=== PATIENT | male | born 1970 | race Caucasian/White ===

== ENCOUNTER 2016-06-18 10:46 | Outpatient (CLI) | payer MEDICAID | END 2016-06-18 10:47 | disposition home or self-care (01) | DX: M50.30 Other cervical disc degeneration, unspecified cervical region (principal); M51.34 Other intervertebral disc degeneration, thoracic region; M51.36 Other intervertebral disc degeneration, lumbar region ==

== ENCOUNTER 2016-06-18 13:03 | Outpatient (CLI) | payer MEDICAID | END 2016-06-18 13:04 | disposition home or self-care (01) | DX: I10 Essential (primary) hypertension (principal); E78.5 Hyperlipidemia, unspecified; Z72.51 High risk heterosexual behavior; M54.89 Other dorsalgia; M50.30 Other cervical disc degeneration, unspecified cervical region; M51.34 Other intervertebral disc degeneration, thoracic region; M51.36 Other intervertebral disc degeneration, lumbar region ==

== ENCOUNTER 2016-08-30 10:47 | Outpatient (CLI) | payer MEDICAID | END 2016-08-30 10:48 | disposition home or self-care (01) | DX: M48.56XA Collapsed vertebra, not elsewhere classified, lumbar region, initial encounter for fracture (principal); M51.36 Other intervertebral disc degeneration, lumbar region; M51.46 Schmorl's nodes, lumbar region; M47.816 Spondylosis without myelopathy or radiculopathy, lumbar region ==

== ENCOUNTER 2016-12-31 08:00 | Outpatient (CLI) | payer MEDICAID | END 2016-12-31 08:01 | disposition home or self-care (01) | LOC: LAB.F 08:00 | PROVIDERS: ATTEND Nurse Practitioner Family | DX: R19.7 Diarrhea, unspecified (principal) | CPT/HCPCS: 82270; 87045; 87046; 87177; 87209; 87493 ==

== ENCOUNTER 2017-01-22 15:54 | Inpatient (IN) | payer MEDICAID ==
[2017-01-22] MEDS ORDERED: NYSTATIN 500000 UNITS/5 ML UDC PO STA (16:51)
[2017-01-22] MEDS ORDERED: diazePAM 5 MG TABLET PO STA (16:53)
--- NOTE | 2017-01-22 16:54 | ED Physician Documentation ---
History of Present Illness - Stated complaint Stated Complaint: DRY MOUTH/CONFUSION - Chief complaint Chief Complaint: General - History obtained from History obtained from: Patient - History of Present Illness Timing: Other (He was started on Seroquel and BuSpar a couple of months ago but he had severe side effects, specifically dry mouth and peripheral muscle aches, despite stopping these medications and not having them in the last few days continues to have severe dry mouth and is drinking a lot of water and feels miserable.) Review of Systems Ten Systems: 10 systems reviewed and negative Constitutional: denies: Fever, Chills Ears: denies: Loss of hearing, Ear pain Nose: denies: Rhinorrhea / runny nose, Congestion PD PAST MEDICAL HISTORY - Allergies Allergies/Adverse Reactions: Allergies Allergy/AdvReac Type Severity Reaction Status Date / Time No Known Drug Allergies Allergy Verified 01/22/17 16:03 PD ED PE NORMAL - Vitals Vital signs reviewed: Yes - General General: Alert and oriented X 3, No acute distress, Other (ill appearing) - HEENT HEENT: PERRL, EOMI, Other (Very dry mucous membranes with mild oral thrush) - Neck Neck: Supple, no meningeal sign, No bony TTP - Cardiac Cardiac: RRR (Mild tachycardia without murmur) - Respiratory Respiratory: No respiratory distress, Clear bilaterally - Abdomen Abdomen: Non tender - Derm Derm: No rash - Neuro Neuro: Alert and oriented X 3, Normal speech - Psych Psych: Normal mood, Normal affect Results - Vitals Vitals: Vital Signs - 24 hr 01/22/17 15:59 Temperature 35.9 C L Heart Rate 111 H Respiratory 20 Rate Blood Pressure 138/98 H O2 Saturation 97 Oxygen O2 Source Room air - Labs Labs: Laboratory Tests 01/22/17 01/22/17 01/22/17 17:20 17:40 17:40 WBC 15.1 H RBC 5.51 Hgb 16.8 Hct 58.7 H MCV 106.6 H MCH 30.5 MCHC 28.6 L RDW 13.7 Plt Count 387 MPV 9.8 Neut # 12.8 H Lymph # 0.9 L Edwards # 1.4 H Eos # 0.0 Baso # 0.1 Absolute Nucleated RBC 0.00 Nucleated RBCs 0.0 VBG pH VBG pCO2 VBG pO2 VBG HCO3 VBG Total CO2 VBG O2 Saturation VBG Base Excess Sodium 116 L* Potassium 6.5 H* Chloride 73 L* Carbon Dioxide 11 L* Anion Gap 32.0 H BUN 44 H Creatinine 2.3 H Estimated GFR (MDRD) 31 L Glucose Calcium 9.2 Magnesium 3.4 H Total Bilirubin 2.1 H AST 15 ALT 22 Alkaline Phosphatase 195 H Total Protein 8.8 H Albumin 5.2 Globulin 3.6 Albumin/Globulin Ratio 1.4 Lipase 133 H Urine Color YELLOW Urine Clarity CLEAR Urine pH 5.5 Ur Specific [place] <=1.005 Urine Protein NEGATIVE Urine Glucose (UA) >=1000 H Urine Ketones 15 H Urine Occult Blood TRACE-LYSE Urine Nitrite NEGATIVE Urine Bilirubin NEGATIVE Urine Urobilinogen 0.2 (NORMAL) Ur Leukocyte Esterase NEGATIVE Ur Microscopic Review NOT INDICATED Urine Culture Comments NOT INDICATED Ethyl Alcohol < 5.0 01/22/17 18:36 WBC RBC Hgb Hct MCV MCH MCHC RDW Plt Count MPV Neut # Lymph # Edwards # Eos # Baso # Absolute Nucleated RBC Nucleated RBCs VBG pH 7.170 L VBG pCO2 31.1 L VBG pO2 74.8 H VBG HCO3 11.1 L VBG Total CO2 12.0 L VBG O2 Saturation 92.6 H VBG Base Excess -16.0 L Sodium Potassium Chloride Carbon Dioxide Anion Gap BUN Creatinine Estimated GFR (MDRD) Glucose Calcium Magnesium Total Bilirubin AST ALT Alkaline Phosphatase Total Protein Albumin Globulin Albumin/Globulin Ratio Lipase Urine Color Urine Clarity Urine pH Ur Specific [place] Urine Protein Urine Glucose (UA) Urine Ketones Urine Occult Blood Urine Nitrite Urine Bilirubin Urine Urobilinogen Ur Leukocyte Esterase Ur Microscopic Review Urine Culture Comments Ethyl Alcohol Procedures - General procedure General procedure: He was difficult for IV access and I personally placed a 20-gauge long IV in the left deep brachial vein using real-time ultrasound guidance. - Central Line Central Line Preparation: Consent Obtained, Ultrasound used, Sterile prep and drape Central line location: Right IJ Central line type: Single lumen Central line aftercare: Chlorhexidine disc placed, No complications, Other (the peripheral IV I had placed came out) PD MEDICAL DECISION MAKING - ED course ED course: 46-year-old gentleman presents by private vehicle complaining of dry mouth after some new psychiatric medications which he is already stopped. He was found to be a new onset diabetic ketoacidosis and IV fluids and insulin were started. Call to the hospitalist for admission at 6:20 PM, she deferred to the night hospitalist who I spoke with at shift change, Dr. Bryce Dailey. - Critical Care Time(min): 45 Time Includes: Direct patient care, Review records, Reassess patient, Document care, Coordinate care, Medical consult, Family consult for tx dec Procedures included in critical care time: Peripheral IV Departure - Departure Disposition: 66 [facility] DC/Xfer Clinical Impression: Renal failure, Hyperkalemia, Oral thrush Diabetic ketoacidosis Qualifiers: Diabetes mellitus type: other specified (including RADHA) Diabetes mellitus complication detail: without coma Qualified Code(s): E13.10 - Other specified diabetes mellitus with ketoacidosis without coma Condition: Critical Discharge Date/Time: 01/22/17 20:26
[2017-01-22] MEDS ORDERED: diazePAM 5 MG TABLET PO ONE (17:17)
[2017-01-22] MEDS ORDERED: NYSTATIN 500000 UNITS/5 ML UDC PO ONE (17:17)
[2017-01-22 17:37] LABS: BILIRUBIN,URINE NEGATIVE (NEGATIVE); PH,URINE 5.5 PH (5.0-7.5)
[2017-01-22 17:38] LABS: UA CHARGE (STRIP ONLY) YES; UR CULTURE IF IND NOT INDICATED
[2017-01-22 17:54] LABS: BASOPHILS # (AUTO) 0.1 10^3/uL (0.0-0.1); BASOPHILS % (AUTO) 0.5 %; EOSINOPHILS % (AUTO) 0.1 %; HCT - HEMATOCRIT 58.7 % (42.0-52.0); HGB - HEMOGLOBIN 16.8 g/dL (14.0-18.0); LYMPHOCYTES # (AUTO) 0.9 10^3/uL (1.5-3.5); LYMPHOCYTES % (AUTO) 5.6 %; MEAN CORPUSCULAR HEMOGLOBIN 30.5 pg (27.0-31.0); MEAN CORPUSCULAR HGB CONC 28.6 g/dL (32.0-36.0); MEAN CORPUSCULAR VOLUME 106.6 fL (80.0-94.0); MEAN PLATELET VOLUME 9.8 fL (7.4-11.4); MONOCYTES # (AUTO) 1.4 10^3/uL (0.0-1.0); MONOCYTES % (AUTO) 9.2 %; NEUTROPHILS # (AUTO) 12.8 10^3/uL (1.5-6.6); NEUTROPHILS % (AUTO) 84.6 %; RED BLOOD COUNT 5.51 10^6/uL (4.70-6.10); RED CELL DISTRIBUTION WIDTH 13.7 % (12.0-15.0); UNCORRECTED WHITE BLOOD COUNT 15.1 x10^3/uL; WHITE BLOOD COUNT 15.1 x10^3/uL (4.8-10.8)
[2017-01-22 18:17] LABS: ALBUMIN/GLOBULIN RATIO 1.4 (1.0-2.2); BILIRUBIN,TOTAL 2.1 mg/dL (0.2-1.0); BUN - BLOOD UREA NITROGEN 44 mg/dL (6-20); CALCIUM 9.2 mg/dL (8.5-10.3); CARBON DIOXIDE - CO2 11 mmol/L (21-32); CHLORIDE 73 mmol/L (101-111); CREATININE 2.3 mg/dL (0.6-1.2); GFR - MDRD 31 (>89); LIPASE 133 U/L (22-51); MAGNESIUM 3.4 mg/dL (1.7-2.8); POTASSIUM 6.5 mmol/L (3.5-5.0); SODIUM 116 mmol/L (135-145); TOTAL PROTEIN 8.8 g/dL (6.7-8.2)
[2017-01-22] MEDS ORDERED: SODIUM CHLORIDE 0.9% 1,000 ML IV ONE (18:17)
[2017-01-22] MEDS ORDERED: INSULIN REGULAR HUMAN 100 UNIT in SODIUM CHLORIDE 0.9% 100ML 99 ML IV STA (18:17)
[2017-01-22] MEDS ORDERED: SODIUM CHLORIDE FLUSH 0.9% 10 ML SYRINGE IVP ONE (18:29)
[2017-01-22] MEDS: SODIUM CHLORIDE 0.9% 1,000 ML IV ONE ×2 (18:40→19:56)
[2017-01-22 18:46] LABS: VBG PH 7.17 (7.31-7.41)
[2017-01-22 18:47] LABS: VBG OXYGEN SATURATION 92.6 % (60-80)
[2017-01-22] MEDS ORDERED: HYDROcod/ACETAM 5/325 MG TABLET PO PRN (18:50)
[2017-01-22] MEDS ORDERED: HYDROcod/ACETAM 10 MG/325 MG TABLET PO PRN (18:50)
[2017-01-22] MEDS ORDERED: ONDANSETRON 4 MG/2 ML VIAL IVP PRN (18:50)
[2017-01-22] MEDS ORDERED: INSULIN REGULAR HUMAN 100 UNIT/1 ML 10 ML MDV ONE (19:41)
--- NOTE | 2017-01-22 20:20 | XRAY Preliminary Report ---
Exam: XR Chest for Line Placement IMPRESSION: Right IJ line to the cavoatrial junction, otherwise unremarkable single view chest. [facility] SITE ID: [id number]
--- NOTE | 2017-01-22 20:22 | XRAY Report ---
EXAM: CHEST RADIOGRAPHY EXAM DATE: 01/22/2017 07:53 PM. CLINICAL HISTORY: Post line placement. COMPARISON: None. TECHNIQUE: 1 view. FINDINGS: Lungs/Pleura: No focal opacities evident. No pleural effusion. No pneumothorax. Mediastinum: Within exam limitations, cardiomediastinal contour is normal. Other: Right IJ line to the cavoatrial junction. IMPRESSION: Right IJ line to the cavoatrial junction, otherwise unremarkable single view chest. [facility] Referring Provider Line: [phone] SITE ID: [id number]
[2017-01-22] MEDS ORDERED: SODIUM CHLORIDE 0.9% 100ML 100 ML IV ONE (20:46)
[2017-01-22] MEDS: SODIUM CHLORIDE 0.9% 1,000 ML IV SCH (20:55)
[2017-01-22] MEDS ORDERED: INSULIN REGULAR HUMAN 100 UNIT in SODIUM CHLORIDE 0.9% 100ML 99 ML IV SCH (21:00)
[2017-01-22 22:16] LABS: HEMOGLOBIN A1C 2.38 g/dL
[2017-01-22 22:30] LABS: MAGNESIUM 3.2 mg/dL (1.7-2.8)
[2017-01-22 23:01] LABS: ABG ANALYSIS TIME 2225; ABG HCO3 15.3 mmol/L (22.0-26.0); ABG PCO2 32 mmHg (34-45); ABG PO2 78 mmHg (80-100); ABG TCO2 16.3 MMOL/L (21.0-29.0)
[2017-01-22 23:02] LABS: ABG BASE EXCESS -9.7 mmol/L (-2.0-3.0); ABG OXYGEN SATURATION 94 % (94-98); ABG ROOM AIR YES; ABG SITE OF DRAW RIGHT RADIAL; ALLEN TEST POSITIVE
[2017-01-22] MEDS: SODIUM CHLORIDE FLUSH 0.9% 10 ML SYRINGE IVP PRN (23:19)
[2017-01-22] MEDS: PANTOPRAZOLE 40 MG VIAL IVP SCH (23:20)
[2017-01-22] MEDS: SODIUM CHLORIDE FLUSH 0.9% 10 ML SYRINGE IVP SCH (23:20)
[2017-01-23 01:06] LABS: BUN - BLOOD UREA NITROGEN 39 mg/dL (6-20); CARBON DIOXIDE - CO2 19 mmol/L (21-32); CHLORIDE 96 mmol/L (101-111); CREATININE 1.9 mg/dL (0.6-1.2); GFR - MDRD 38 (>89); MAGNESIUM 3.4 mg/dL (1.7-2.8); POTASSIUM 4.1 mmol/L (3.5-5.0); SODIUM 134 mmol/L (135-145)
[2017-01-23 01:07] LABS: GLUCOSE 835 mg/dL (70-100)
[2017-01-23] MEDS: SODIUM CHLORIDE 0.9% 1,000 ML IV SCH ×5 (01:59→16:32)
[2017-01-23 03:39] LABS: GLUCOSE 565 mg/dL (70-100)
--- NOTE | 2017-01-23 03:52 | HISTORY & PHYSICAL EXAMINATION ---
DATE OF ADMISSION: 01/22/2017 PRIMARY CARE PHYSICIAN: JLUIS Cobrett. CHIEF COMPLAINT: Confusion. IDENTIFYING INFORMATION: The patient is a very poor historian to the point where he cannot even say w here he was born exactly and when asked again, said somewhere in [place]. Most of the information is obtained in the hand-off from the emergency department physician, as well as personal review of [facility] records summarized below and his data collected during this visit. HISTORY OF PRESENT ILLNESS: The patient, a couple of months ago, because of psychiatric problems, was started on Seroquel and BuSpar, but due to side effects including dry mouth and muscle aches, the me dications were stopped, but he has continued to have dry mouth, drinking a lot of water. The patient appears to just be concerned about these issues. He says he never had this before. REVIEW OF SYSTEMS: He has not had any fever or chills. No sore throat. He just has a very dry mouth. He denies abdominal pain. He says he is peeing a lot, as well as drinking a lot of walker. The patien t's rest of the complete review of systems is negative as queried. PAST MEDICAL HISTORY: Is not forthcoming given the poor historian. ALLERGIES: NONE KNOWN. MEDICATIONS: According to him, he has no medications he takes on a chronic basis, only medicines note d above previously. FAMILY HISTORY: Negative for diabetes. Positive for heart disease. He does not know about cancer. PERSONAL AND SOCIAL HISTORY: He says he does not smoke, drink, except occasionally. Never smoked jase y. He says that he has not used any drugs or alcohol. PHYSICAL EXAMINATION VITAL SIGNS: Temperature 35.9, pulse 111, respirations 20, blood pressure 138/98, O2 saturation on ro om air is 97%. EYES: EOM within normal limits. PERRL. Nonicteric. ENT: Mouth and throat, very dry mucous membranes. Otherwise, no pathology. Specifically no exudate, t ongue coating. NECK: No lymphadenopathy. Supple. No thyromegaly. CHEST WALL: Nontender. Symmetric. LUNGS: Clear, good air movement. No increased work of breathing. HEART: Sinus tachycardia. No murmur, rubs, clicks heard. ABDOMEN: Thick abdominal wall, soft, nontender, normal bowel sounds. No hepatosplenomegaly. RECTAL/GENITAL: Exam is not done. EXTREMITIES: Without edema. He has palpable pulses posterior tibial bilaterally. SKIN: No suspicious lesions, dermatitis. NEUROLOGIC: Cognitive is impaired as noted above. Cranial nerves intact. Motor intact. Gait was not t ested. LABORATORY DATA: White count 15,000 with 16 and 58 hemoglobin and hematocrit. The patient's platelet count is 387. Sodium 116, potassium 6.5, chloride 73, carbon dioxide 11, CO2 44, BUN 2.3, glucose is over 1000. The patient's bilirubin is high at 2.1. Normal liver enzymes. Alkaline phosphatase elevate d at 195, albumin is 5.2. Urine shows greater than 1000 glucose, ketones 15. No white cells, red cell s. Alcohol is less than 5.0. The patient's chest x-ray is negative. SUMMARY: The patient has been sick for some number of days with muscle aches, polydipsia and polyuria , diagnosed with DKA. About previous history, the patient is a very poor historian. The history is th erefore limited in depth and breadth. IMPRESSION 1. Diabetic ketoacidosis. 2. New onset diabetes. 3. Hyponatremia. 4. Pseudohyperkalemia. DISCUSSION/DECISION MAKING: The patient with his DKA needs close monitoring in ICU. Will need infusio ns of high volume saline, as well as insulin drip. The new diabetes will need to have, after he is ou t of DKA, diabetic instruction. The hyponatremia will be improved with the saline infusion, as he is felt to be hypokalemic. The patient's potassium will be monitored. May actually need potassium replac ement given his extremely high glucose. HOSPITAL ISSUES 1. CODE STATUS: FULL CODE. 2. DVT prophylaxis: Lovenox subcutaneous. 3. Diet: Will be n.p.o. presently. 4. Activity: Bed rest initially. 5. Tube and lines: Will be peripheral IV presently. May need a central line, may need a Crow. 6. Hospital status: To be inpatient given the severity of illness. The severity of illness requires a t least 2 nights of inpatient therapy and potentially additional diagnostics and therapeutics to asce rtain improvement for safe discharge. 7. Estimated length of stay: 3 nights. 8. Expected disposition: For him to be discharged to home. TIME SPENT IN CRITICAL CARE: 60 minutes. The patient required multiple reexaminations, consultations for this life-threatening DKA. JOB #: [id number] EXT JOB #:[id number]
[2017-01-23 04:48] LABS: BASOPHILS # (AUTO) 0.1 10^3/uL (0.0-0.1); BASOPHILS % (AUTO) 0.5 %; HCT - HEMATOCRIT 46.5 % (42.0-52.0); HGB - HEMOGLOBIN 16.2 g/dL (14.0-18.0); LYMPHOCYTES # (AUTO) 2.4 10^3/uL (1.5-3.5); LYMPHOCYTES % (AUTO) 14.1 %; MEAN CORPUSCULAR HEMOGLOBIN 30.9 pg (27.0-31.0); MEAN CORPUSCULAR HGB CONC 34.8 g/dL (32.0-36.0); MEAN CORPUSCULAR VOLUME 88.7 fL (80.0-94.0); MEAN PLATELET VOLUME 8.8 fL (7.4-11.4); MONOCYTES # (AUTO) 1.3 10^3/uL (0.0-1.0); MONOCYTES % (AUTO) 7.7 %; NEUTROPHILS # (AUTO) 13.4 10^3/uL (1.5-6.6); NEUTROPHILS % (AUTO) 77.7 %; RED BLOOD COUNT 5.24 10^6/uL (4.70-6.10); RED CELL DISTRIBUTION WIDTH 12.7 % (12.0-15.0); UNCORRECTED WHITE BLOOD COUNT 17.2 x10^3/uL; WHITE BLOOD COUNT 17.2 x10^3/uL (4.8-10.8)
[2017-01-23 04:51] LABS: GLUCOSE 500 mg/dL (70-100)
[2017-01-23 05:11] LABS: ABG BASE EXCESS 0.3 mmol/L (-2.0-3.0); ABG HCO3 23.7 mmol/L (22.0-26.0); ABG OXYGEN SATURATION 96 % (94-98); ABG PCO2 35 mmHg (34-45); ABG PH 7.45 (7.35-7.45); ABG PO2 79 mmHg (80-100); ABG TCO2 24.8 MMOL/L (21.0-29.0); ALLEN TEST POSITIVE
[2017-01-23 05:12] LABS: ABG ROOM AIR YES; ABG SITE OF DRAW LEFT RADIAL
[2017-01-23 05:21] LABS: POTASSIUM 3.9 mmol/L (3.5-5.0)
[2017-01-23 05:22] LABS: CALCIUM 9.1 mg/dL (8.5-10.3); CREATININE 1.5 mg/dL (0.6-1.2); MAGNESIUM 3.2 mg/dL (1.7-2.8); PHOSPHORUS 2.4 mg/dL (2.5-4.6)
[2017-01-23 05:23] LABS: BILIRUBIN,TOTAL 1.3 mg/dL (0.2-1.0)
[2017-01-23 05:24] LABS: ALBUMIN/GLOBULIN RATIO 1.7 (1.0-2.2); TOTAL PROTEIN 7.6 g/dL (6.7-8.2)
[2017-01-23 05:39] LABS: GLUCOSE 484 mg/dL (70-100)
[2017-01-23 05:51] LABS: GLUCOSE 1172 mg/dL (70-100)
[2017-01-23] MEDS: NEUTRA-PHOS 250 MG TABLET PO SCH ×2 (05:55→08:11)
[2017-01-23] MEDS ORDERED: HALOPERIDOL 5 MG/ML VIAL IM SCH (06:34)
[2017-01-23] MEDS: SODIUM CHLORIDE FLUSH 0.9% 10 ML SYRINGE IVP SCH ×3 (06:39→20:55)
[2017-01-23] MEDS: PANTOPRAZOLE 40 MG VIAL IVP SCH (06:46)
[2017-01-23] MEDS: SODIUM CHLORIDE FLUSH 0.9% 10 ML SYRINGE IVP PRN ×2 (06:46→20:55)
[2017-01-23 07:30] LABS: GLUCOSE 398 mg/dL (70-100)
[2017-01-23] MEDS ORDERED: INSULIN REGULAR HUMAN 100 UNIT/1 ML 10 ML MDV ONE (09:21)
[2017-01-23] MEDS ORDERED: INSULIN REGULAR HUMAN 100 UNIT in SODIUM CHLORIDE 0.9% 100ML 99 ML IV SCH (09:30)
[2017-01-23] MEDS: NICOTINE 21 MG PATCH TOP SCH (10:04)
[2017-01-23] MEDS: ENOXAPARIN 40 MG/0.4 ML SYRINGE SUBQ SCH (10:16)
[2017-01-23] MEDS ORDERED: DEXTROSE 5%-0.9% NACL 1,000 ML IV ONE (15:44)
[2017-01-23 16:04] LABS: CALCIUM 7.5 mg/dL (8.5-10.3)
[2017-01-23 17:18] LABS: PHOSPHORUS 2.8 mg/dL (2.5-4.6)
[2017-01-23] MEDS: metFORMIN 500 MG TABLET PO SCH (17:24)
[2017-01-23] MEDS: INSULIN ASPART 300 UNIT/3 ML PEN SUBQ SCH ×2 (17:25→21:33)
[2017-01-23 17:54] LABS: CALCIUM, IONIZED 0.97 mmol/L (1.15-1.33); VBG PH 7.346 (7.31-7.41)
[2017-01-23] MEDS ORDERED: POTASSIUM CHLORIDE 20 MEQ TABLET PO SCH (18:00)
[2017-01-23] MEDS: NYSTATIN 500000 UNITS/5 ML UDC PO SCH ×2 (18:04→20:54)
--- NOTE | 2017-01-23 18:08 | PROVIDER PROGRESS NOTE ---
Hospitalist Cross-cover Note - Cross-Cover Note Cross-Cover Note: Pt more alert and mother, sister and nephew all gave more info today: Pt moved from [place] to [place] in Apr 2016. Pt used to drink alcohol heavily, but not for past 2 years. Mother was taking Pt to Medical Clinic and Psych and Telepsych appts. Last blood tests were 6 mos ago and "glucose was normal". About 2-5 mos ago, Pt began to have increased thirst, polyuria and fatigue. A few days ago, mouth so dry that Pt stopped his psych meds thinking they caused dry mouth. Pt was seen in his Medical Clinic yesterday and his established ANIMAL SHELTER CLERK advised mother bring Pt to our ED, "because he looked so bad'. Exam is consistent with thrush. Will start Nystatin swish and swallow and Clotrimazole lozenges.
[2017-01-23] MEDS: CLOTRIMAZOLE 10 MG LOZENGE MM SCH ×2 (18:33→21:33)
[2017-01-23] MEDS ORDERED: CALCIUM GLUCONATE 2,000 MG in SODIUM CHLORIDE 0.9% 100ML 100 ML IV ONE (19:00)
[2017-01-23] MEDS: POTASSIUM CHLOR 10 MEQ/100 ML 100 ML IV SCH ×4 (19:07→19:15)
[2017-01-23] MEDS: busPIRone 5 MG TABLET PO SCH (20:54)
[2017-01-23] MEDS: QUEtiapine 25 MG TABLET PO SCH (20:54)
[2017-01-23 21:05] LABS: CALCIUM, IONIZED 1.11 mmol/L (1.15-1.33); VBG PH 7.372 (7.31-7.41)
[2017-01-23 21:16] LABS: ALBUMIN/GLOBULIN RATIO 1.3 (1.0-2.2); BILIRUBIN,TOTAL 1.1 mg/dL (0.2-1.0); POTASSIUM 4.5 mmol/L (3.5-5.0); TOTAL PROTEIN 5.6 g/dL (6.7-8.2)
[2017-01-23] MEDS ORDERED: INSULIN ASPART 100 UNIT/1 ML 10 ML MDV SUBQ STA (21:21)
[2017-01-23] MEDS ORDERED: INSULIN ASPART 100 UNIT/1 ML 10 ML MDV SUBQ SCH (21:51)
[2017-01-23] MEDS ORDERED: INSULIN ASPART 300 UNIT/3 ML PEN SUBQ SCH (23:45)
[2017-01-24 05:04] LABS: BASOPHILS # (AUTO) 0.1 10^3/uL (0.0-0.1); BASOPHILS % (AUTO) 0.8 %; EOSINOPHILS # (AUTO) 0.1 10^3/uL (0.0-0.7); EOSINOPHILS % (AUTO) 0.6 %; HCT - HEMATOCRIT 40.1 % (42.0-52.0); HGB - HEMOGLOBIN 13.7 g/dL (14.0-18.0); LYMPHOCYTES # (AUTO) 4.4 10^3/uL (1.5-3.5); LYMPHOCYTES % (AUTO) 34.9 %; MEAN CORPUSCULAR HEMOGLOBIN 30.8 pg (27.0-31.0); MEAN CORPUSCULAR VOLUME 90.4 fL (80.0-94.0); MEAN PLATELET VOLUME 8.5 fL (7.4-11.4); MONOCYTES % (AUTO) 7.9 %; NEUTROPHILS % (AUTO) 55.8 %; RED BLOOD COUNT 4.43 10^6/uL (4.70-6.10); RED CELL DISTRIBUTION WIDTH 12.5 % (12.0-15.0); UNCORRECTED WHITE BLOOD COUNT 12.5 x10^3/uL; WHITE BLOOD COUNT 12.5 x10^3/uL (4.8-10.8)
[2017-01-24 05:17] LABS: ALBUMIN/GLOBULIN RATIO 1.4 (1.0-2.2); BILIRUBIN,TOTAL 1.3 mg/dL (0.2-1.0); BUN - BLOOD UREA NITROGEN 22 mg/dL (6-20); CALCIUM 8.4 mg/dL (8.5-10.3); CARBON DIOXIDE - CO2 25 mmol/L (21-32); CHLORIDE 106 mmol/L (101-111); CREATININE 1.1 mg/dL (0.6-1.2); GFR - MDRD 71 (>89); GLUCOSE 282 mg/dL (70-100); MAGNESIUM 2.3 mg/dL (1.7-2.8); POTASSIUM 3.8 mmol/L (3.5-5.0); SODIUM 141 mmol/L (135-145); TOTAL PROTEIN 5.9 g/dL (6.7-8.2)
[2017-01-24] MEDS: CLOTRIMAZOLE 10 MG LOZENGE MM SCH ×5 (06:28→21:12)
[2017-01-24] MEDS: SODIUM CHLORIDE FLUSH 0.9% 10 ML SYRINGE IVP SCH ×3 (06:28→21:05)
[2017-01-24] MEDS: PANTOPRAZOLE 40 MG VIAL IVP SCH ×2 (06:28→21:05)
[2017-01-24] MEDS: INSULIN ASPART 300 UNIT/3 ML PEN SUBQ SCH ×4 (08:12→21:03)
[2017-01-24] MEDS: busPIRone 5 MG TABLET PO SCH ×2 (09:24→21:04)
[2017-01-24] MEDS: ENOXAPARIN 40 MG/0.4 ML SYRINGE SUBQ SCH (09:26)
[2017-01-24] MEDS: metFORMIN 500 MG TABLET PO SCH ×2 (09:26→16:39)
[2017-01-24] MEDS: NYSTATIN 500000 UNITS/5 ML UDC PO SCH ×4 (09:27→21:05)
[2017-01-24] MEDS: NICOTINE 21 MG PATCH TOP SCH (09:27)
[2017-01-24] MEDS: CALCIUM CARBONATE CHEW 500 MG TABLET PO SCH ×2 (15:19→21:04)
[2017-01-24] MEDS ORDERED: CALCIUM CARBONATE CHEW 500 MG TABLET ONE (15:22)
--- NOTE | 2017-01-24 16:41 | PROVIDER PROGRESS NOTE ---
Assessment/Plan - Problem List (1) Diabetic ketoacidosis Qualifiers: Diabetes mellitus type: other specified (including RADHA) Diabetes mellitus complication detail: without coma Qualified Code(s): E13.10 - Other specified diabetes mellitus with ketoacidosis without coma Assessment/Plan: Ketones now neg Glu are running 300-400's Will advance diet Will add Lantus 10U qpm to cover am high sugars Continue metformin 500 mg bid Pt needs DM education (2) Oral thrush Assessment/Plan: Continue Nystatin and Clotrimazole (3) Abdominal pain Qualifiers: Abdominal location: epigastric Qualified Code(s): R10.13 - Epigastric pain Assessment/Plan: Pt may have esophageal Candidiasis as well as thrush Continue Nystatin, Clotrimazole, add TUMS and/or Mylanta Follow H/H and heme test stool - Current Meds Current Meds: Current Medications Generic Name Dose Route Start Last Admin Trade Name Freq PRN Reason Stop Dose Admin Acetaminophen/Hydrocodone Bitart 1 tab 01/22/17 18:50 01/23/17 19:43 [place] 5/325 PO 1 tab Q4HR PRN Administration Pain 5 to 7 Buspirone HCl 5 mg 01/23/17 21:00 01/24/17 09:24 Buspar PO 5 mg BID TRACI Administration Calcium Carbonate/Glycine 500 mg 01/24/17 16:00 01/24/17 15:19 Tums PO 500 mg BID TRACI Administration Clotrimazole 10 mg 01/23/17 18:00 01/24/17 15:24 MM 10 mg 5XD TRACI Administration Enoxaparin Sodium 40 mg 01/23/17 09:00 01/24/17 09:26 Lovenox SUBQ 40 mg DAILY TRACI Administration Insulin Aspart 3 - 11 unit 01/24/17 08:00 01/24/17 11:50 Novolog SUBQ 11 unit 0800,1200,1700,2100 TRACI Administration Protocol Metformin HCl 500 mg 01/23/17 17:00 01/24/17 09:26 Glucophage PO 500 mg BIDWM TRACI Administration Nicotine 1 patch 01/23/17 10:00 01/24/17 09:27 Nicoderm TOP 1 patch DAILY TRACI Administration Nystatin 5 ml 01/23/17 18:00 01/24/17 13:52 Mycostatin PO 5 ml QID TRACI Administration Ondansetron HCl 4 mg 01/22/17 18:50 01/24/17 12:31 Zofran Inj IVP 4 mg Q4HR PRN Administration Nausea / Vomiting Pantoprazole Sodium 40 mg 01/22/17 19:00 01/24/17 06:28 Protonix IVP 40 mg QDAC TRACI Administration Quetiapine Fumarate 25 mg 01/23/17 21:00 01/23/17 20:54 Seroquel PO 25 mg QPM TRACI Administration Sodium Chloride 10 ml 01/22/17 18:50 01/23/17 20:55 Normal Saline Flush 0.9% IVP 10 ml PRN PRN Administration NEEDED PER PROVIDER ORDERS Sodium Chloride 10 ml 01/22/17 22:00 01/24/17 12:31 Normal Saline Flush 0.9% IVP 10 ml Q8HR TRACI Administration - Lab Result Fish Bone Diagrams: 01/24/17 04:50 01/24/17 04:50 - Additional Planning My Orders: My Active Orders 01/23/17 15:42 Activity Orders [RC] QSHIFT 01/23/17 15:49 Initiate Hypoglycemia Protocol [RC] .protocol 01/23/17 17:00 metFORMIN [Glucophage] 500 mg PO BIDWM 01/23/17 18:00 Clotrimazole Row[place] 10 mg MM 5XD Nystatin [Mycostatin] 5 ml PO QID 01/23/17 21:00 QUEtiapine [SEROquel] 25 mg PO QPM busPIRone [Buspar] 5 mg PO BID 01/23/17 Dinner Carb-controlled Diet [DIET] 01/24/17 16:00 Calcium Carbonate [Tums] 500 mg PO BID 01/24/17 21:00 Insulin Glargine [Lantus Solostar] 10 unit SUBQ QPM Subjective - Subjective Patient Reports: Heartburn, Other (More alert) Nursing Reports: Other (Heartburn when swallowed first solid food today) Objective Vital Signs: Vital Signs - 24 hr 01/23/17 01/23/17 01/23/17 17:11 18:00 19:00 Temperature 36.6 C Heart Rate [ Brachial] Heart Rate [ 92 94 93 Monitoring electrodes] Respiratory 54 H 22 24 Rate Blood Pressure 138/78 H 133/80 H 150/79 H [Left Brachial artery] Blood Pressure [Right Brachial artery] O2 Saturation 97 95 96 01/23/17 01/23/17 01/23/17 20:00 21:12 22:05 Temperature 37.3 C Heart Rate [ Brachial] Heart Rate [ 94 95 97 Monitoring electrodes] Respiratory 17 22 22 Rate Blood Pressure 135/85 H 150/87 H 126/73 [Left Brachial artery] Blood Pressure [Right Brachial artery] O2 Saturation 94 96 96 01/23/17 01/24/17 01/24/17 23:02 00:00 01:00 Temperature 36.6 C Heart Rate [ Brachial] Heart Rate [ 103 H 104 H 103 H Monitoring electrodes] Respiratory 21 21 22 Rate Blood Pressure 123/75 110/75 126/74 [Left Brachial artery] Blood Pressure [Right Brachial artery] O2 Saturation 95 95 96 01/24/17 01/24/17 01/24/17 02:00 03:00 04:00 Temperature 37.1 C Heart Rate [ Brachial] Heart Rate [ 104 H 102 H 97 Monitoring electrodes] Respiratory 18 22 20 Rate Blood Pressure 127/79 114/80 131/70 H [Left Brachial artery] Blood Pressure [Right Brachial artery] O2 Saturation 97 97 97 01/24/17 01/24/17 01/24/17 05:00 06:00 07:00 Temperature Heart Rate [ Brachial] Heart Rate [ 95 92 92 Monitoring electrodes] Respiratory 18 18 22 Rate Blood Pressure 148/80 H 124/83 H 121/77 [Left Brachial artery] Blood Pressure [Right Brachial artery] O2 Saturation 96 95 96 01/24/17 01/24/17 01/24/17 08:00 09:00 10:00 Temperature 36.7 C Heart Rate [ Brachial] Heart Rate [ 90 100 87 Monitoring electrodes] Respiratory 19 22 20 Rate Blood Pressure 132/83 H 137/88 H 122/85 H [Left Brachial artery] Blood Pressure [Right Brachial artery] O2 Saturation 97 95 97 01/24/17 01/24/17 01/24/17 11:00 12:00 13:00 Temperature 36.3 C L Heart Rate [ Brachial] Heart Rate [ 93 96 102 H Monitoring electrodes] Respiratory 19 21 23 Rate Blood Pressure 141/81 H 118/74 140/71 H [Left Brachial artery] Blood Pressure [Right Brachial artery] O2 Saturation 97 96 97 01/24/17 01/24/17 01/24/17 14:00 14:49 15:43 Temperature 36.9 C 36.7 C Heart Rate [ 99 100 Brachial] Heart Rate [ 101 H Monitoring electrodes] Respiratory 16 18 16 Rate Blood Pressure 130/82 H [Left Brachial artery] Blood Pressure 123/85 H 132/74 H [Right Brachial artery] O2 Saturation 97 96 96 Oxygen O2 Source Room air I&O (Last 24 Hrs): Intake and Output Totals x24h 01/22/17 01/23/17 01/24/17 23:59 23:59 23:59 Intake Total 1025 6853 1790 Output Total 1050 2100 1125 Balance -25 9013 665 General: Alert HEENT: Mucous membr. moist/pink, Other Neck: Supple Cardiovascular: Regular rate Respiratory: No respiratory distress Abdomen: Soft Extremities: No edema - Results Results: Laboratory Results WBC 12.5 x10^3/uL (4.8-10.8) H 01/24/17 04:50 RBC 4.43 10^6/uL (4.70-6.10) L 01/24/17 04:50 Hgb 13.7 g/dL (14.0-18.0) L 01/24/17 04:50 Hct 40.1 % (42.0-52.0) L 01/24/17 04:50 MCV 90.4 fL (80.0-94.0) 01/24/17 04:50 MCH 30.8 pg (27.0-31.0) 01/24/17 04:50 MCHC 34.0 g/dL (32.0-36.0) 01/24/17 04:50 RDW 12.5 % (12.0-15.0) 01/24/17 04:50 Plt Count 201 10^3/uL (130-450) 01/24/17 04:50 MPV 8.5 fL (7.4-11.4) 01/24/17 04:50 Neut # 7.0 10^3/uL (1.5-6.6) H 01/24/17 04:50 Lymph # 4.4 10^3/uL (1.5-3.5) H 01/24/17 04:50 [place] # 1.0 10^3/uL (0.0-1.0) 01/24/17 04:50 Eos # 0.1 10^3/uL (0.0-0.7) 01/24/17 04:50 Baso # 0.1 10^3/uL (0.0-0.1) 01/24/17 04:50 Absolute Nucleated RBC 0.01 x10^3/uL 01/24/17 04:50 Nucleated RBCs 0.0 /100WBC 01/24/17 04:50 Bld Gas Analysis Time 0511 01/23/17 05:03 Sample Site LEFT RADIAL 01/23/17 05:03 ABG pH 7.45 (7.35-7.45) 01/23/17 05:03 ABG pCO2 35 mmHg (34-45) 01/23/17 05:03 ABG pO2 79 mmHg (80-100) L 01/23/17 05:03 ABG HCO3 23.7 mmol/L (22.0-26.0) 01/23/17 05:03 ABG Total CO2 24.8 MMOL/L (21.0-29.0) 01/23/17 05:03 ABG O2 Saturation 96 % (94-98) 01/23/17 05:03 ABG Base Excess 0.3 mmol/L (-2.0-3.0) 01/23/17 05:03 Jacobo Test POSITIVE 01/23/17 05:03 VBG pH 7.372 (7.31-7.41) 01/23/17 20:50 VBG pCO2 31.1 mmHg (41-51) L 01/22/17 18:36 VBG pO2 74.8 mmHg (25-47) H 01/22/17 18:36 VBG HCO3 11.1 mmol/L (23-28) L 01/22/17 18:36 VBG Total CO2 12.0 mmol/L (24-29) L 01/22/17 18:36 VBG O2 Saturation 92.6 % (60-80) H 01/22/17 18:36 VBG Base Excess -16.0 mmol/L (-2 - +2) L 01/22/17 18:36 Ionized Calcium 1.11 mmol/L (1.15-1.33) L 01/23/17 20:50 Room Air YES 01/23/17 05:03 Sodium 141 mmol/L (135-145) 01/24/17 04:50 Potassium 3.8 mmol/L (3.5-5.0) 01/24/17 04:50 Chloride 106 mmol/L (101-111) 01/24/17 04:50 Carbon Dioxide 25 mmol/L (21-32) 01/24/17 04:50 Anion Gap 10.0 (6-13) 01/24/17 04:50 BUN 22 mg/dL (6-20) H 01/24/17 04:50 Creatinine 1.1 mg/dL (0.6-1.2) 01/24/17 04:50 Estimated GFR (MDRD) 71 (>89) L 01/24/17 04:50 Glucose 282 mg/dL (70-100) H 01/24/17 04:50 POC Whole Bld Glucose 357 mg/dL (70 - 100) H 01/24/17 16:22 Glycated Hemoglobin 14.5 % (4.6-6.2) H 01/22/17 21:44 Estim Average Glucose 369 (70-100) H 01/22/17 21:44 Calcium 8.4 mg/dL (8.5-10.3) L 01/24/17 04:50 Ionized Calcium NO 01/24/17 04:50 Phosphorus 3.0 mg/dL (2.5-4.6) 01/24/17 04:50 Magnesium 2.3 mg/dL (1.7-2.8) 01/24/17 04:50 Total Bilirubin 1.3 mg/dL (0.2-1.0) H 01/24/17 04:50 AST 19 IU/L (10-42) 01/24/17 04:50 ALT 16 IU/L (10-60) 01/24/17 04:50 Alkaline Phosphatase 94 IU/L (42-121) 01/24/17 04:50 CK-MB (CK-2) 2.8 ng/mL (0.6-6.3) 01/22/17 21:45 Total Protein 5.9 g/dL (6.7-8.2) L 01/24/17 04:50 Albumin 3.4 g/dL (3.2-5.5) 01/24/17 04:50 Globulin 2.5 g/dL (2.1-4.2) 01/24/17 04:50 Albumin/Globulin Ratio 1.4 (1.0-2.2) 01/24/17 04:50 Lipase 133 U/L (22-51) H 01/22/17 17:40 Urine Color YELLOW 01/22/17 17:20 Urine Clarity CLEAR (CLEAR) 01/22/17 17:20 Urine pH 5.5 PH (5.0-7.5) 01/22/17 17:20 Ur Specific [place] <=1.005 (1.002-1.030) 01/22/17 17:20 Urine Protein NEGATIVE mg/dL (NEGATIVE) 01/22/17 17:20 Urine Glucose (UA) >=1000 mg/dL (NEGATIVE) H 01/22/17 17:20 Urine Ketones 15 mg/dL (NEGATIVE) H 01/22/17 17:20 Urine Occult Blood TRACE-LYSE (NEGATIVE) 01/22/17 17:20 Urine Nitrite NEGATIVE (NEGATIVE) 01/22/17 17:20 Urine Bilirubin NEGATIVE (NEGATIVE) 01/22/17 17:20 Urine Urobilinogen 0.2 (NORMAL) E.U./dL (NORMAL) 01/22/17 17:20 Ur Leukocyte Esterase NEGATIVE (NEGATIVE) 01/22/17 17:20 Ur Microscopic Review NOT INDICATED 01/22/17 17:20 Urine Culture Comments NOT INDICATED 01/22/17 17:20 Urine Opiates Screen NEGATIVE (NEGATIVE) 01/22/17 20:50 Ur Oxycodone Screen NEGATIVE (NEGATIVE) 01/22/17 20:50 Urine Methadone Screen NEGATIVE (NEGATIVE) 01/22/17 20:50 Ur Propoxyphene Screen NEGATIVE (NEGATIVE) 01/22/17 20:50 Ur Barbiturates Screen NEGATIVE (NEGATIVE) 01/22/17 20:50 Ur Tricyclics Screen NEGATIVE (NEGATIVE) 01/22/17 20:50 Ur Phencyclidine Scrn NEGATIVE (NEGATIVE) 01/22/17 20:50 Ur Amphetamine Screen NEGATIVE (NEGATIVE) 01/22/17 20:50 U Methamphetamines Scrn NEGATIVE (NEGATIVE) 01/22/17 20:50 U Benzodiazepines Scrn NEGATIVE (NEGATIVE) 01/22/17 20:50 Urine Cocaine Screen NEGATIVE (NEGATIVE) 01/22/17 20:50 U Cannabinoids Screen NEGATIVE (NEGATIVE) 01/22/17 20:50 Ethyl Alcohol < 5.0 mg/dL 01/22/17 17:40 Serum Ketones MACHINE LEAD BURNER 01/23/17 13:53
[2017-01-24] MEDS: MAG HYDROX/AL HYDROX/SIMETH 30 ML UDC PO PRN (18:37)
[2017-01-24] MEDS ORDERED: INSULIN ASPART 100 UNIT/1 ML 10 ML MDV SUBQ STA (20:54)
[2017-01-24] MEDS ORDERED: INSULIN GLARGINE 300 UNIT/3 ML PEN SUBQ SCH (21:00)
[2017-01-24] MEDS: QUEtiapine 25 MG TABLET PO SCH (21:04)
[2017-01-24] MEDS ORDERED: INSULIN ASPART 300 UNIT/3 ML PEN SUBQ SCH (21:27)
--- NOTE | 2017-01-24 22:29 | CT Preliminary Report ---
Exam: CT KUB IMPRESSION: 1. Negative for urinary tract Stone, hydronephrosis, bowel dilation, or other definite acute intra-ab dominal process. 2. Bibasilar atelectasis. 3. Other incidental findings as noted. [facility] SITE ID: [id number]
--- NOTE | 2017-01-24 22:32 | CT Report ---
EXAM: CT ABDOMEN AND PELVIS (CT KUB) EXAM DATE: 01/24/2017 10:11 PM. CLINICAL HISTORY: Upper abdominal pain. COMPARISONS: None. TECHNIQUE: Routine axial helical CT imaging was performed through the abdomen and pelvis without IV c ontrast. Reconstructions: Coronal and sagittal. In accordance with CT protocol optimization, one or more of the following dose reduction techniques w ere utilized for this exam: automated exposure control, adjustment of mA and/or KV based on patient s ize, or use of iterative reconstructive technique. FINDINGS: Lung Bases: Bibasilar atelectasis. No consolidation or effusion. Right Kidney/Ureter: No stones, hydronephrosis, or hydroureter. No perinephric fat stranding. Left Kidney/Ureter: No stones, hydronephrosis, or hydroureter. No perinephric fat stranding. Other Solid Organs: Unremarkable liver, spleen, accessory spleens, pancreas, and right adrenal gland. Mild thickening of left adrenal gland with small calcification. Gallbladder/Bile Ducts: Unremarkable. Peritoneal Cavity: Moderate stool. No bowel dilation, free fluid, free air, or lymphadenopathy. Maribeth l appendix. Pelvic Organs: No bladder stones or wall thickening. Noncontrast images of the visualized pelvic orga ns are unremarkable. Vasculature: Unremarkable. Other: None. IMPRESSION: 1. Negative for urinary tract Stone, hydronephrosis, bowel dilation, or other definite acute intra-ab dominal process. 2. Bibasilar atelectasis. 3. Other incidental findings as noted. [facility] Referring Provider Line: [phone] SITE ID: [id number]
[2017-01-25] MEDS: SODIUM CHLORIDE FLUSH 0.9% 10 ML SYRINGE IVP SCH (06:09)
[2017-01-25] MEDS: CLOTRIMAZOLE 10 MG LOZENGE MM SCH ×2 (06:14→11:15)
[2017-01-25 06:16] LABS: BASOPHILS % (AUTO) 0.5 %; EOSINOPHILS # (AUTO) 0.1 10^3/uL (0.0-0.7); EOSINOPHILS % (AUTO) 1.3 %; HCT - HEMATOCRIT 36.5 % (42.0-52.0); HGB - HEMOGLOBIN 12.6 g/dL (14.0-18.0); LYMPHOCYTES # (AUTO) 2.3 10^3/uL (1.5-3.5); LYMPHOCYTES % (AUTO) 35.3 %; MEAN CORPUSCULAR HEMOGLOBIN 31.6 pg (27.0-31.0); MEAN CORPUSCULAR HGB CONC 34.4 g/dL (32.0-36.0); MEAN CORPUSCULAR VOLUME 91.7 fL (80.0-94.0); MEAN PLATELET VOLUME 8.2 fL (7.4-11.4); MONOCYTES # (AUTO) 0.6 10^3/uL (0.0-1.0); MONOCYTES % (AUTO) 9.7 %; NEUTROPHILS # (AUTO) 3.4 10^3/uL (1.5-6.6); NEUTROPHILS % (AUTO) 53.2 %; RED BLOOD COUNT 3.98 10^6/uL (4.70-6.10); RED CELL DISTRIBUTION WIDTH 12.6 % (12.0-15.0); UNCORRECTED WHITE BLOOD COUNT 6.5 x10^3/uL; WHITE BLOOD COUNT 6.5 x10^3/uL (4.8-10.8)
[2017-01-25 06:24] LABS: CALCIUM 8.4 mg/dL (8.5-10.3); CREATININE 0.8 mg/dL (0.6-1.2); POTASSIUM 4.1 mmol/L (3.5-5.0)
[2017-01-25] MEDS: MAG HYDROX/AL HYDROX/SIMETH 30 ML UDC PO PRN ×2 (08:09→11:58)
[2017-01-25] MEDS: INSULIN ASPART 300 UNIT/3 ML PEN SUBQ SCH (08:17)
[2017-01-25] MEDS: PANTOPRAZOLE 40 MG VIAL IVP SCH (08:47)
[2017-01-25] MEDS: NYSTATIN 500000 UNITS/5 ML UDC PO SCH (08:47)
[2017-01-25] MEDS: NICOTINE 21 MG PATCH TOP SCH (08:47)
[2017-01-25] MEDS: CALCIUM CARBONATE CHEW 500 MG TABLET PO SCH (08:48)
[2017-01-25] MEDS: ENOXAPARIN 40 MG/0.4 ML SYRINGE SUBQ SCH (08:48)
[2017-01-25] MEDS: busPIRone 5 MG TABLET PO SCH (08:48)
--- NOTE | 2017-01-25 09:24 | Discharge Plan ---
Discharge Plan Disposition: 01 Home, Self Care Condition: Stable Prescriptions: Mag Hydrox/Aluminum Hyd/Simeth [Antacid Suspension] 30 ml PO AC #360 oral.susp Clotrimazole Rowena 10 mg MM 5XD #70 lozenge [place], Safety [Easy Touch Fliplock Needle] 1 each BID #100 dis.needle Blood-Glucose Meter [Glucometer] 1 each MC AC #1 each Blood Sugar Diagnostic [Glucometer Strips] 1 each AC #100 strip metFORMIN [Glucophage] 500 mg PO BIDWM #60 tablet Insulin Glargine [Lantus Solostar] 10 unit SUBQ QPM #30 pen Nicotine 21 mg Patch [Nicoderm] 1 patch TOP DAILY #30 patch Insulin Aspart [NovoLOG] 10 unit SUBQ 0800,1700 #60 pen Nystatin 100,000 unit PO QID #56 ml Diet: Diabetic (2000 benja/day) Activity Restrictions: Activity as Tolerated Shower Restrictions: No Driving Restrictions: No Weight Bearing: Full Weight Instruction Topics: DKA Prevent Ch, Thrush Oral, ED Jeana Esophagitis, Diabetes Healthy Meals, Hyperglycemia, Hypoglycemia, Blood Sugar Check, Insulin Injected, Insulin Types, Diabetes Eating Out Additional Instructions or Follow Up instructions: Come to [facility] clinic for your Diabetes care Follow-Up Care: Dietitian, [facility] - Diabetes Ed No Smoking: If you smoke, Please STOP! Call for help. Follow-up with: Lalita Casas ARNP [Primary Care Provider] -
[2017-01-25] MEDS: metFORMIN 500 MG TABLET PO SCH (09:30)
[2017-01-25 11:04] VITALS: BP 119/73
[2017-01-25] MEDS ORDERED: WATER FOR INJECTION,STERILE 10 ML ONE (12:16)
[2017-01-25] MEDS ORDERED: INSULIN ASPART 300 UNIT/3 ML PEN SUBQ ONE (13:01)
[2017-01-25] MEDS ORDERED: INSULIN ASPART 300 UNIT/3 ML PEN SUBQ SCH (13:30)
[2017-01-25] MEDS ORDERED: A & D OINTMENT 5 GM PACKET TOP ONE (14:19)
--- NOTE | 2017-01-25 23:25 | DISCHARGE SUMMARY ---
DATE OF ADMISSION: 01/22/2017 DATE OF DISCHARGE: 01/25/2017 This is a 46-year-old white male with a history of psychiatric disorder on 2 psychiatric medications, which he stopped several days before admission on his own, thinking that the medications were causing excessive thirst a dry mouth. Because of pain in his oral cavity and dry mouth, he presented to the emergency room, where he was found to be lethargic and to have diabetes and was in DKA. The glucose was over 1000, moderate ketones; white blood count 15,000; sodium 116, potassium 6.5, creatinine 2.3. HOSPITAL COURSE BY DIAGNOSES 1. Diabetic ketoacidosis. The patient was placed on an insulin drip, hydration with saline, and eventually changed to a sliding scale of insulin, D5 normal saline, and a long-acting insulin dose based on his insulin requirements. He eventually was changed to a diabetic diet, started on metformin, required long- acting and short-acting insulin for blood glucose fingersticks in the 300-400 range. 2. NEW ONSET OF DIABETES MELLITUS: The patient received diabetic teaching by dietitian. The patient is willing to come to [facility] for further management of his newly diagnosed diabetes. 3. Hyponatremia. The patient was placed on normal saline and with correction of his glucose, the sodium normalized. 4. Hyperkalemia. The patient was placed on a protocol for DKA, and the potassium normalized. 5. Psychiatric disorder. Once the patient was able to take p.o. medications, his medicines were resumed at the doses that he had discontinued several days before admission. 6. Oral thrush. The patient placed on nystatin pwleg-nxl-iqslind, as well as clotrimazole lozenges for treatment of oral thrush. This was felt to be contributing to his oral cavity pain and dry mouth. 7. Epigastric pain. The patient developed stabbing pain without nausea, vomiting , diarrhea, hematemesis, fever, or any evidence of an acute abdomen. A CT of the abdomen was benign. This was felt to be symptoms of esophageal candidiasis. Mylanta Plus was used before solid food meals, which controlled his symptoms. A W/U for PUD could be done as an outpatient. CONDITION AT DISCHARGE: Stable. His exam is entirely within normal limits except for oral thrush. DISCHARGE MEDICATIONS These include unchanged doses of his BuSpar and Seroquel that he was on prior to admission, and the following new medications: 1. Mylanta Plus p.r.n. before meals. 2. Clotrimazole lozenges 10 mg 5 times a day. 3. Nystatin 100,000 units p.o. dupun-nvt-gjumfvl q.i.d. 4. Metformin 500 mg p.o. b.i.d. 5. Long-acting insulin 10 units b.i.d. subcutaneously. 6. Short short-acting insulin 10 units a.c. subcutaneously. with a sliding scale based on fingerstick glucose results. 7. Nicoderm patches topically. 8. The patient was also ordered to get a glucometer and fingerstick glucose strips. He received educational pamphlets on: DKA Prevention, Oral Thrush, Esophageal Candidiasis, Diabetes Healthy Meals, Hyperglycemia, Hypoglycemia, Blood Sugar Checks, Insulin Injection, Insulin Types, Diabetes Eating Out. PLAN 1. Follow up in the [facility] clinic for diabetes care. 2. Follow up with psychiatry for his psychiatry care. 3. The patient also is to stop smoking and was interested in Nicoderm topical patches. JOB #: [id number] EXT JOB #:[id number] LAY
== END 2017-01-25 15:00 | disposition home or self-care (01) | DRG 638 ==
LOC: ED 15:54 → ICU 18:51 → MS2 01-24 14:16
PROVIDERS: ADMIT Internal Medicine; ATTEND Internal Medicine
DX: E13.10 Other specified diabetes mellitus with ketoacidosis without coma (principal); B37.0 Candidal stomatitis; E87.1 Hypo-osmolality and hyponatremia; B37.81 Candidal esophagitis; R17 Unspecified jaundice; R10.9 Unspecified abdominal pain; E87.5 Hyperkalemia; F99 Mental disorder, not otherwise specified; F17.200 Nicotine dependence, unspecified, uncomplicated; Z87.898 Personal history of other specified conditions
CPT/HCPCS: 36556; 36600; 71010; 74176; 80048; 80053; 80306; 80320; 81001; 81003; 82009; 82040; 82270; 82330; 82553; 82803; 82947; 83036; 83690; 83735; 84100; 85025; 87086; 87150; 96360; 96361; 99284; 99291

== ENCOUNTER 2017-01-31 09:09 | Outpatient (CLI) | payer MEDICAID ==
[2017-01-31 17:26] LABS: HEMOGLOBIN A1C 2.2 g/dL
[2017-01-31 17:27] LABS: BASOPHILS % (AUTO) 0.9 %; EOSINOPHILS % (AUTO) 2.1 %; HCT - HEMATOCRIT 43.1 % (42.0-52.0); HGB - HEMOGLOBIN 14.3 g/dL (14.0-18.0); LYMPHOCYTES % (AUTO) 20.9 %; MEAN CORPUSCULAR HEMOGLOBIN 30.8 pg (27.0-31.0); MEAN CORPUSCULAR HGB CONC 33.2 g/dL (32.0-36.0); MEAN CORPUSCULAR VOLUME 92.8 fL (80.0-94.0); MEAN PLATELET VOLUME 8.7 fL (7.4-11.4); MONOCYTES % (AUTO) 12.1 %; RED BLOOD COUNT 4.64 10^6/uL (4.70-6.10); RED CELL DISTRIBUTION WIDTH 12.8 % (12.0-15.0); UNCORRECTED WHITE BLOOD COUNT 11.2 x10^3/uL; WHITE BLOOD COUNT 11.2 x10^3/uL (4.8-10.8)
[2017-01-31 17:48] LABS: ALBUMIN/GLOBULIN RATIO 1.1 (1.0-2.2); BILIRUBIN,TOTAL 0.4 mg/dL (0.2-1.0); CALCIUM 9.7 mg/dL (8.5-10.3); CREATININE 0.8 mg/dL (0.6-1.2); POTASSIUM 4.3 mmol/L (3.5-5.0); TOTAL PROTEIN 7.4 g/dL (6.7-8.2)
[2017-01-31 19:50] LABS: BAND NEUTROPHILS % (MANUAL) 6 %; BASOPHILS % (MANUAL) 2 %; EOSINOPHILS % (MANUAL) 3 %; LYMPHOCYTES % (MANUAL) 19 %; NEUTROPHILS % (MANUAL) 54 %; NP AUTO DIFFERENTIAL? YES; NP MAN DIFFERENTIAL? NO; PLATELET ESTIMATE, MANUAL NORMAL (130-450,000) (NORMAL); PLATELET MORPHOLOGY NORMAL APPEARANCE (NORMAL); TOTAL CELLS COUNTED 100
== END 2017-01-31 09:10 | disposition home or self-care (01) ==
LOC: LAB.F 09:09
PROVIDERS: ATTEND Nurse Practitioner Family
DX: E11.69 Type 2 diabetes mellitus with other specified complication (principal)
CPT/HCPCS: 36415; 80053; 82043; 83036; 85025

== ENCOUNTER 2017-03-10 11:03 | Outpatient (CLI) | payer MEDICAID ==
--- NOTE | 2017-03-10 13:13 | Ultrasound Report ---
ABDOMINAL ULTRASOUND: 03/10/2017 CLINICAL INDICATION: Diarrhea. TECHNIQUE: Real-time scanning was performed with surgical device sales representative static images obtained. FINDINGS: The liver measures 16.1 cm. Hepatic echotexture is unremarkable. No intrahepatic biliary dilatation or focal parenchymal lesion is present. The common bile duct measures 5 mm. The gallbla dder is unremarkable. The pancreas is obscured by bowel gas. The spleen measures 12.2 cm, and demon strates normal echotexture. The kidneys are normal, with the right measuring 10.4 cm and the left me asuring 10.8 cm. The visualized abdominal aorta and inferior vena cava are unremarkable. No free fl uid is present. IMPRESSION: NORMAL ABDOMINAL ULTRASOUND. JOB #: [id number] EXT JOB #:[id number]
== END 2017-03-10 11:04 | disposition home or self-care (01) ==
LOC: DI 11:03
PROVIDERS: ATTEND Nurse Practitioner Family
DX: R19.7 Diarrhea, unspecified (principal)
CPT/HCPCS: 76700

== ENCOUNTER 2017-03-10 11:06 | Outpatient (CLI) | payer MEDICAID ==
--- NOTE | 2017-03-10 12:05 | MRI Preliminary Report ---
Exam: MRI Brain W/O IMPRESSION: 1. No acute intracranial abnormalities. Specifically, no evidence of acute infarct, hemorrhage, or ma ss lesion. 2. Minimal white matter changes. These findings are nonspecific and commonly seen in this age group, possibly associated with headaches, chronic small vessel ischemic disease, or even prior trauma. SITE ID: [id number]
--- NOTE | 2017-03-10 12:08 | MRI Report ---
EXAM: MRI BRAIN WITHOUT CONTRAST EXAM DATE: 03/10/2017 11:45 AM. CLINICAL HISTORY: 46-year-old man with headache. COMPARISON: None. TECHNIQUE: Multiplanar, multisequence T1-weighted and fluid-sensitive MR sequences of the brain were performed. Sequences optimized for routine evaluation. Other: None. IV Contrast: None. FINDINGS: Parenchyma: No evidence of acute infarct on diffusion weighted sequence. The parenchyma demonstrate s everal small foci of nonspecific FLAIR hyperintensity in the deep cerebral white matter, a common fin ding in this age group. No evidence of prior hemorrhage on susceptibility weighted sequence. Pituitary: Unremarkable. Ventricles and Extra-axial Spaces: Ventricles are symmetric and normal in size for age. Extra-axial s paces are unremarkable. Orbits: Unremarkable. Sinuses: Mucous retention cysts are present along the floor of the left maxillary sinus. Mastoid air cells are clear. Major Vascular Flow Voids: Intact. IMPRESSION: 1. No acute intracranial abnormalities. Specifically, no evidence of acute infarct, hemorrhage, or ma ss lesion. 2. Minimal white matter changes. These findings are nonspecific and commonly seen in this age group, possibly associated with headaches, chronic small vessel ischemic disease, or even prior trauma. Referring Provider Line: [phone] SITE ID: [id number]
== END 2017-03-10 11:07 | disposition home or self-care (01) ==
LOC: DI 11:06
PROVIDERS: ATTEND Nurse Practitioner Family
DX: R51 Headache (principal)
CPT/HCPCS: 70551; 76700

== ENCOUNTER 2017-05-20 09:52 | Outpatient (CLI) | payer MEDICAID ==
[2017-05-20 18:33] LABS: BASOPHILS # (AUTO) 0.1 10^3/uL (0.0-0.1); BASOPHILS % (AUTO) 1.1 %; EOSINOPHILS # (AUTO) 0.3 10^3/uL (0.0-0.7); EOSINOPHILS % (AUTO) 3.4 %; HCT - HEMATOCRIT 46.9 % (42.0-52.0); HGB - HEMOGLOBIN 15.6 g/dL (14.0-18.0); LYMPHOCYTES # (AUTO) 2.1 10^3/uL (1.5-3.5); MEAN CORPUSCULAR HEMOGLOBIN 29.6 pg (27.0-31.0); MEAN CORPUSCULAR HGB CONC 33.3 g/dL (32.0-36.0); MEAN CORPUSCULAR VOLUME 88.9 fL (80.0-94.0); MEAN PLATELET VOLUME 8.1 fL (7.4-11.4); MONOCYTES # (AUTO) 0.7 10^3/uL (0.0-1.0); NEUTROPHILS # (AUTO) 5.1 10^3/uL (1.5-6.6); NEUTROPHILS % (AUTO) 61.5 %; NUCLEATED RED BLOOD CELLS AUTO 0.1 /100WBC; RED BLOOD COUNT 5.28 10^6/uL (4.70-6.10); RED CELL DISTRIBUTION WIDTH 14.3 % (12.0-15.0); UNCORRECTED WHITE BLOOD COUNT 8.2 x10^3/uL; WHITE BLOOD COUNT 8.2 x10^3/uL (4.8-10.8)
[2017-05-20 18:53] LABS: ALBUMIN/GLOBULIN RATIO 1.4 (1.0-2.2); BILIRUBIN,TOTAL 0.5 mg/dL (0.2-1.0); CALCIUM 9.1 mg/dL (8.5-10.3); CREATININE 0.9 mg/dL (0.6-1.2); POTASSIUM 4.2 mmol/L (3.5-5.0); TOTAL PROTEIN 7.3 g/dL (6.7-8.2)
[2017-05-20 18:55] LABS: HEMOGLOBIN A1C 0.8 g/dL
== END 2017-05-20 09:53 | disposition home or self-care (01) ==
LOC: LAB.F 09:52
PROVIDERS: ATTEND Nurse Practitioner Family
DX: E11.69 Type 2 diabetes mellitus with other specified complication (principal); D72.829 Elevated white blood cell count, unspecified
CPT/HCPCS: 36415; 80053; 83036; 85025

== ENCOUNTER 2017-08-14 09:16 | Outpatient (CLI) | payer MEDICAID ==
[2017-08-14 17:26] LABS: BASOPHILS % (AUTO) 0.9 %; EOSINOPHILS % (AUTO) 4.3 %; LYMPHOCYTES % (AUTO) 31.7 %; MEAN CORPUSCULAR HGB CONC 33.3 g/dL (32.0-36.0); MEAN PLATELET VOLUME 7.8 fL (7.4-11.4); MONOCYTES % (AUTO) 8.3 %; NEUTROPHILS % (AUTO) 54.8 %; PLT - PLATELET COUNT 298 10^3/uL (130-450); RED BLOOD COUNT 5.53 10^6/uL (4.70-6.10); RED CELL DISTRIBUTION WIDTH 15.5 % (12.0-15.0); WHITE BLOOD COUNT 9.5 x10^3/uL (4.8-10.8)
[2017-08-14 17:30] LABS: ABNORMAL LYMPHS % (MANUAL) 0 %; BAND NEUTROPHILS % (MANUAL) 0 %
[2017-08-14 17:42] LABS: DIFFERENTIAL COMMENT MANUAL DIFFERENTIAL; EOSINOPHILS # (MANUAL) 0.2 10^3/uL (0-0.7); LYMPHOCYTES # (MANUAL) 3.1 10^3/uL (1.5-3.5); LYMPHOCYTES % (MANUAL) 33 %; MONOCYTES # (MANUAL) 0.4 10^3/uL (0.0-1.0); NEUTROPHILS # (MANUAL) 5.8 10^3/uL (1.5-6.6); NEUTROPHILS % (MANUAL) 61 %; PLATELET ESTIMATE, MANUAL NORMAL (130-450,000) (NORMAL); PLATELET MORPHOLOGY NORMAL APPEARANCE (NORMAL); RBC MORPHOLOGY (MULTIPLE) 1+ ANISOCYTOSIS (NORMAL)
[2017-08-14 18:32] LABS: HB2 TOTAL 18.5 g/dL; HEMOGLOBIN A1C 0.92 g/dL; HEMOGLOBIN A1C % 6.7 % (4.6-6.2)
[2017-08-14 18:40] LABS: ALBUMIN 4.4 g/dL (3.2-5.5); ALBUMIN/GLOBULIN RATIO 1.3 (1.0-2.2); BILIRUBIN,TOTAL 0.7 mg/dL (0.2-1.0); CALCIUM 9.2 mg/dL (8.5-10.3); CREATININE 0.9 mg/dL (0.6-1.2); TOTAL PROTEIN 7.8 g/dL (6.7-8.2)
== END 2017-08-14 09:17 | disposition home or self-care (01) ==
LOC: LAB.F 09:16
PROVIDERS: ATTEND Nurse Practitioner Family
DX: Z79.4 Long term (current) use of insulin (principal)
CPT/HCPCS: 36415; 80053; 83036; 85025

== ENCOUNTER 2017-11-18 08:23 | Outpatient (CLI) | payer MEDICAID ==
[2017-11-18 11:55] LABS: BASOPHILS # (AUTO) 0.1 10^3/uL (0.0-0.1); BASOPHILS % (AUTO) 0.9 %; EOSINOPHILS # (AUTO) 0.4 10^3/uL (0.0-0.7); HGB - HEMOGLOBIN 15.5 g/dL (14.0-18.0); LYMPHOCYTES # (AUTO) 3.1 10^3/uL (1.5-3.5); LYMPHOCYTES % (AUTO) 32.6 %; MEAN CORPUSCULAR HGB CONC 33.8 g/dL (32.0-36.0); MEAN CORPUSCULAR VOLUME 88.6 fL (80.0-94.0); MEAN PLATELET VOLUME 7.9 fL (7.4-11.4); MONOCYTES # (AUTO) 1.1 10^3/uL (0.0-1.0); MONOCYTES % (AUTO) 11.4 %; NEUTROPHILS # (AUTO) 4.8 10^3/uL (1.5-6.6); NEUTROPHILS % (AUTO) 51.1 %; PLT - PLATELET COUNT 249 10^3/uL (130-450); RED BLOOD COUNT 5.17 10^6/uL (4.70-6.10); RED CELL DISTRIBUTION WIDTH 13.5 % (12.0-15.0); WHITE BLOOD COUNT 9.5 x10^3/uL (4.8-10.8)
[2017-11-18 12:15] LABS: ALBUMIN 3.8 g/dL (3.2-5.5); ALBUMIN/GLOBULIN RATIO 1.2 (1.0-2.2); ALKALINE PHOSPHATASE 97 IU/L (42-121); ALT ALANINE AMINOTRANSFERASE 15 IU/L (10-60); AST ASPARTATE AMINOTRANSFERASE 18 IU/L (10-42); BILIRUBIN,TOTAL 0.9 mg/dL (0.2-1.0); BUN - BLOOD UREA NITROGEN 19 mg/dL (6-20); CALCIUM 8.8 mg/dL (8.5-10.3); CARBON DIOXIDE - CO2 23 mmol/L (21-32); CHLORIDE 107 mmol/L (101-111); CHOL/HDL RATIO 6.8 (<5.0); CHOLESTEROL 219 mg/dL; CREATININE 0.8 mg/dL (0.6-1.2); GFR - MDRD 103 (>89); GLUCOSE 140 mg/dL (70-100); HDL CHOLESTEROL 32 mg/dL; LDL CHOLESTEROL,CALCULATED 135 mg/dL; LDL/HDL RATIO 4.2 (<3.6); SODIUM 137 mmol/L (135-145); TOTAL PROTEIN 7.1 g/dL (6.7-8.2); VLDL CHOLESTEROL 52 mg/dL
[2017-11-18 12:19] LABS: HB2 TOTAL 16.7 g/dL; HEMOGLOBIN A1C 0.78 g/dL; HEMOGLOBIN A1C % 6.4 % (4.6-6.2)
== END 2017-11-18 08:24 | disposition home or self-care (01) ==
LOC: LAB.F 08:23
PROVIDERS: ATTEND Nurse Practitioner Family
DX: E11.9 Type 2 diabetes mellitus without complications (principal); R25.1 Tremor, unspecified
CPT/HCPCS: 36415; 80053; 80061; 83036; 83721; 84443; 85025

== ENCOUNTER 2018-09-22 09:21 | Outpatient (CLI) | payer OTHER ==
[2018-09-22 18:05] LABS: BASOPHILS # (AUTO) 0.1 10^3/uL (0.0-0.1); BASOPHILS % (AUTO) 1.1 %; EOSINOPHILS # (AUTO) 0.3 10^3/uL (0.0-0.7); EOSINOPHILS % (AUTO) 3.4 %; HGB - HEMOGLOBIN 15.6 g/dL (14.0-18.0); LYMPHOCYTES # (AUTO) 2.9 10^3/uL (1.5-3.5); LYMPHOCYTES % (AUTO) 29.1 %; MEAN CORPUSCULAR HEMOGLOBIN 29.9 pg (27.0-31.0); MEAN CORPUSCULAR HGB CONC 33.1 g/dL (32.0-36.0); MEAN CORPUSCULAR VOLUME 90.3 fL (80.0-94.0); MEAN PLATELET VOLUME 8.1 fL (7.4-11.4); MONOCYTES # (AUTO) 0.9 10^3/uL (0.0-1.0); MONOCYTES % (AUTO) 8.7 %; NEUTROPHILS # (AUTO) 5.7 10^3/uL (1.5-6.6); NEUTROPHILS % (AUTO) 57.7 %; PLT - PLATELET COUNT 299 10^3/uL (130-450); RED BLOOD COUNT 5.23 10^6/uL (4.70-6.10); RED CELL DISTRIBUTION WIDTH 13.2 % (12.0-15.0); WHITE BLOOD COUNT 9.9 x10^3/uL (4.8-10.8)
[2018-09-22 18:32] LABS: ALBUMIN 4.2 g/dL (3.2-5.5); ALBUMIN/GLOBULIN RATIO 1.4 (1.0-2.2); ALKALINE PHOSPHATASE 99 IU/L (42-121); ALT ALANINE AMINOTRANSFERASE 19 IU/L (10-60); AST ASPARTATE AMINOTRANSFERASE 21 IU/L (10-42); BILIRUBIN,TOTAL 0.8 mg/dL (0.2-1.0); BUN - BLOOD UREA NITROGEN 21 mg/dL (6-20); CALCIUM 9.1 mg/dL (8.5-10.3); CARBON DIOXIDE - CO2 22 mmol/L (21-32); CHLORIDE 106 mmol/L (101-111); CHOLESTEROL 240 mg/dL; CREATININE 0.9 mg/dL (0.6-1.2); GFR - MDRD 90 (>89); GLUCOSE 141 mg/dL (70-100); HDL CHOLESTEROL 40 mg/dL; LDL CHOLESTEROL,CALCULATED 148 mg/dL; LDL/HDL RATIO 3.7 (<3.6); SODIUM 137 mmol/L (135-145); TOTAL PROTEIN 7.2 g/dL (6.7-8.2); VLDL CHOLESTEROL 52 mg/dL
[2018-09-22 19:20] LABS: HB2 TOTAL 16.7 g/dL; HEMOGLOBIN A1C 0.9 g/dL; HEMOGLOBIN A1C % 7.1 % (4.6-6.2)
== END 2018-09-22 09:22 | disposition home or self-care (01) ==
LOC: LAB.F 09:21
PROVIDERS: ATTEND Registered Nurse
DX: Z00.00 Encounter for general adult medical examination without abnormal findings (principal)
CPT/HCPCS: 36415; 80053; 80061; 83036; 83721; 84443; 85025

== ENCOUNTER 2019-08-18 11:47 | Emergency (ER) | payer OTHER ==
--- NOTE | 2019-08-18 12:30 | XRAY Report ---
Reason: cough, recent fever Procedure Date: 08/18/2019 Accession Number: [id number] / [id number] Procedure: XR - Chest 2 View X-Ray CPT Code: 66633 Final Report FULL RESULT: EXAM: CHEST RADIOGRAPHY EXAM DATE: 08/18/2019 12:08 PM. CLINICAL HISTORY: Cough, recent fever. COMPARISON: CHEST FOR LINE PLACEMENT 01/22/2017 7:56 PM. TECHNIQUE: 2 views. FINDINGS: Lungs/Pleura: No focal opacities evident. No pleural effusion. No pneumothorax. Normal volumes. Mediastinum: Heart and mediastinal contours are unremarkable. Other: Old left rib fractures. IMPRESSION: Old rib fractures on the left. Otherwise normal chest exam. RADIA
--- NOTE | 2019-08-18 13:52 | ED Physician Documentation ---
PD HPI URI - Stated complaint Stated Complaint: SOA, FLU LIKE SYMPTOMS - Chief complaint Chief Complaint: Resp - History obtained from History obtained from: Patient (Patient presents today per the request of his employer. The patient was sick 10 days ago with URI symptoms. He was seen at [facility] and they advised the pt to self quarantine for potential Covid-19, they did no testing. The pt was feeling better taking OTC medications for cold symptoms. He went to work yesterday and felt run down after a few hours. Today he felt worse while working and they advised him to come get get further evaluation. he c/o left ear pain/ fullness, Fevers, chills, nausea, without vomiting, coughing without productivity.He continues to smoke three quarters of a pack cigarettes a day. Denies any past medical history of asthma.) Review of Systems Constitutional: reports: Fever, Chills, Fatigue Eyes: reports: Reviewed and negative Ears: reports: Ear pain. denies: Drainage/discharge, Tinnitus/ringing Nose: reports: Rhinorrhea / runny nose, Congestion Throat: reports: Sore throat Respiratory: reports: Cough GI: reports: Nausea. denies: Abdominal Pain, Abdominal Swelling, Vomiting, Diarrhea : denies: Dysuria, Frequency Musculoskeletal: reports: Other (general fatigue) PD PAST MEDICAL HISTORY - Past Medical History Past Medical History: Yes Cardiovascular: None Respiratory: None Neuro: None Psych: Depression, Anxiety - Past Surgical History Past Surgical History: No - Present Medications Home Medications: Ambulatory Orders Medication Instructions Recorded Confirmed busPIRone [Buspar] 5 mg PO BID 01/23/17 01/23/17 risperiDONE [Risperdal] 2 mg PO DAILY PM 01/23/17 01/23/17 Blood Sugar Diagnostic [Glucometer 1 each AC #100 strip 01/25/17 Strips] Blood-Glucose Meter [Glucometer] 1 each AC #1 each 01/25/17 Clotrimazole Rowena 10 mg MM 5XD #70 lozenge 01/25/17 Insulin Aspart [NovoLOG] 10 unit SUBQ 0800,1700 #60 pen 01/25/17 Insulin Glargine [Lantus Solostar] 10 unit SUBQ QPM #30 pen 01/25/17 Mag Hydrox/Aluminum Hyd/Simeth 30 ml PO AC #360 oral.susp 01/25/17 [Antacid Suspension] [place], Safety [Easy Touch 1 each MC BID #100 dis.needle 01/25/17 Fliplock Needle] Nicotine 21 mg Patch [Nicoderm] 1 patch TOP DAILY #30 patch 01/25/17 Nystatin 100,000 unit PO QID #56 ml 01/25/17 QUEtiapine [SEROquel] 25 mg PO QPM tablet 01/25/17 busPIRone [Buspar] 5 mg PO BID tablet 01/25/17 metFORMIN [Glucophage] 500 mg PO BIDWM #60 tablet 01/25/17 Azithromycin [Zithromax] 0 mg PO DAILY #6 tablet 08/18/19 Benzonatate 200 mg PO TID PRN #20 capsule 08/18/19 - Allergies Allergies/Adverse Reactions: Allergies Allergy/AdvReac Type Severity Reaction Status Date / Time No Known Drug Allergies Allergy Verified 08/18/19 12:00 - Social History Does the pt smoke?: Yes Smoking Status: Current every day smoker Does the pt drink ETOH?: No Does the pt have substance abuse?: No - Immunizations Immunizations are current?: Yes - POLST Patient has POLST: No PD ED PE NORMAL - General General: Alert and oriented X 3, No acute distress, Well developed/nourished - HEENT HEENT: Atraumatic, PERRL, Moist mucous membranes, Pharynx benign - Neck Neck: No adenopathy - Cardiac Cardiac: RRR, No murmur - Respiratory Respiratory: Clear bilaterally - Abdomen Abdomen: Normal bowel sounds, Soft, Non tender - Derm Derm: Normal color, Warm and dry, No rash - Psych Psych: Normal mood, Normal affect PD ED PE EXPANDED - HEENT HEENT: PERRL, L TM dull, Nasal congestion, Rhinorrhea - Neck Neck: Adenopathy (anterior) - Respiratory Respiratory: No: Wheezing, Rhonchi, Rales Results - Vitals Vitals: Vital Signs - 24 hr 08/18/19 08/18/19 11:55 14:39 Temperature 36.6 C Heart Rate 89 89 Respiratory 18 16 Rate Blood Pressure 144/90 H 140/84 H O2 Saturation 100 100 Oxygen O2 Source Room air - Labs Labs: Laboratory Tests 08/18/19 12:55 Influenza A (Rapid) Negative Influenza B (Rapid) Negative PD MEDICAL DECISION MAKING - ED course Complexity details: reviewed results, re-evaluated patient, considered differential, d/w patient Departure - Departure Disposition: 01 Home, Self Care Clinical Impression: Upper respiratory tract infection Qualifiers: URI type: unspecified viral URI Qualified Code(s): J06.9 - Acute upper respiratory infection, unspecified Condition: Good Instructions: ED Viral Syndrome Prescriptions: Azithromycin [Zithromax] 0 mg PO DAILY #6 tablet Benzonatate 200 mg PO TID PRN #20 capsule PRN Reason: Cough Comments: You have been given a prescription today for Tessalon Perles, these are for your cough. Take as directed up to 3 times a day to help reduce your coughing. You have also been given a prescription for azithromycin antibiotic. As discussed wait 2 to 3 days to see if your symptoms improve, if they fail to improve or your fevers worsen while taking Tylenol & ibuprofen then go ahead and fill and start the antibiotic as prescribed. You were tested today for the Covid- 19 virus and will take 2 to 3 days for the results to return, once those results are back he may return to work. Forms: Activity restrictions Discharge Date/Time: 08/18/19 14:41
[2019-08-18 14:41] VITALS: BP 140/84
== END 2019-08-18 14:41 | disposition home or self-care (01) ==
LOC: ED 11:47
DX: J06.9 Acute upper respiratory infection, unspecified (principal); F17.210 Nicotine dependence, cigarettes, uncomplicated
CPT/HCPCS: 71046; 81599; 87275; 87276; 99284

== ENCOUNTER 2020-03-17 12:14 | Outpatient (CLI) | payer OTHER ==
[2020-03-17 15:30] LABS: BASOPHILS # (AUTO) 0.1 10^3/uL (0.0-0.1); BASOPHILS % (AUTO) 1.2 %; EOSINOPHILS # (AUTO) 0.3 10^3/uL (0.0-0.7); EOSINOPHILS % (AUTO) 2.4 %; HGB - HEMOGLOBIN 16.4 g/dL (14.0-18.0); LYMPHOCYTES # (AUTO) 2.7 10^3/uL (1.5-3.5); LYMPHOCYTES % (AUTO) 24.5 %; MEAN CORPUSCULAR HEMOGLOBIN 30.3 pg (27.0-31.0); MEAN CORPUSCULAR HGB CONC 34.3 g/dL (32.0-36.0); MEAN CORPUSCULAR VOLUME 88.2 fL (80.0-94.0); MEAN PLATELET VOLUME 10.5 fL (7.4-11.4); MONOCYTES # (AUTO) 0.7 10^3/uL (0.0-1.0); MONOCYTES % (AUTO) 6.2 %; NEUTROPHILS # (AUTO) 7.1 10^3/uL (1.5-6.6); NEUTROPHILS % (AUTO) 65.2 %; PLT - PLATELET COUNT 281 10^3/uL (130-450); RED BLOOD COUNT 5.42 10^6/uL (4.70-6.10); RED CELL DISTRIBUTION WIDTH 12.1 % (12.0-15.0); WHITE BLOOD COUNT 10.9 x10^3/uL (4.8-10.8)
[2020-03-17 15:47] LABS: ALBUMIN 4.6 g/dL (3.2-5.5); ALBUMIN/GLOBULIN RATIO 1.4 (1.0-2.2); ALKALINE PHOSPHATASE 135 IU/L (42-121); ALT ALANINE AMINOTRANSFERASE 30 IU/L (10-60); AST ASPARTATE AMINOTRANSFERASE 23 IU/L (10-42); BILIRUBIN,TOTAL 1.3 mg/dL (0.2-1.0); BUN - BLOOD UREA NITROGEN 22 mg/dL (6-20); CALCIUM 9.6 mg/dL (8.5-10.3); CARBON DIOXIDE - CO2 19 mmol/L (21-32); CHLORIDE 94 mmol/L (101-111); CHOL/HDL RATIO 8.2 (<5.0); CHOLESTEROL 336 mg/dL; CREATININE 0.9 mg/dL (0.6-1.2); GLUCOSE 485 mg/dL (70-100); HDL CHOLESTEROL 41 mg/dL; SODIUM 129 mmol/L (135-145); TOTAL PROTEIN 7.8 g/dL (6.7-8.2)
[2020-03-17 15:57] LABS: CREATININE,URINE 49.2 mg/dL; MICROALBUM/CREATININE RATIO,UR 91.5 ug/mg (<30.0); MICROALBUMIN,URINE 4.5 mg/dL (0-300.0)
[2020-03-17 16:16] LABS: LDL CHOLESTEROL,DIRECT 183 mg/dL; LDLD/HDL RATIO 4.5 (<3.6)
== END 2020-03-17 12:15 | disposition home or self-care (01) ==
LOC: LAB.S 12:14
PROVIDERS: ATTEND Psychiatry & Neurology Psychiatry
DX: R63.1 Polydipsia (principal); Z51.81 Encounter for therapeutic drug level monitoring; Z79.899 Other long term (current) drug therapy
CPT/HCPCS: 36415; 80053; 80061; 81599; 82043; 82570; 83036; 83721; 85025

== ENCOUNTER 2020-04-08 09:31 | Outpatient (CLI) | payer OTHER ==
[2020-04-08 14:21] LABS: HEMOGLOBIN A1c% 14.8 % (4.27-6.07)
== END 2020-04-08 09:32 | disposition home or self-care (01) ==
LOC: LAB.S 09:31
PROVIDERS: ATTEND Physician Assistant
DX: E11.65 Type 2 diabetes mellitus with hyperglycemia (principal)
CPT/HCPCS: 36415; 81599; 83036; 86341

== ENCOUNTER 2020-07-31 08:53 | Outpatient (CLI) | payer OTHER, MEDICAID ==
[2020-07-31 14:59] LABS: HEMOGLOBIN A1c% 6.8 % (4.27-6.07)
== END 2020-07-31 08:54 | disposition home or self-care (01) ==
LOC: LAB.S 08:53
PROVIDERS: ATTEND Physician Assistant
DX: E11.9 Type 2 diabetes mellitus without complications (principal)
CPT/HCPCS: 36415; 83036

== ENCOUNTER → 2020-12-12 | Outpatient (CLI) | payer OTHER, MEDICAID | LOC: LAB.S 08:00 | PROVIDERS: ATTEND Physician Assistant | DX: R05 Cough (principal); Z20.822 Contact with and (suspected) exposure to COVID-19 ==

== ENCOUNTER 2021-06-25 08:10 | Outpatient (CLI) | payer OTHER ==
[2021-06-25 14:53] LABS: CREATININE 0.7 mg/dL (0.6-1.2)
== END 2021-06-25 08:11 | disposition home or self-care (01) ==
LOC: LAB.S 08:10
PROVIDERS: ATTEND Physician Assistant
DX: E11.9 Type 2 diabetes mellitus without complications (principal)
CPT/HCPCS: 36415; 82565

== ENCOUNTER 2021-10-18 08:00 | Outpatient (CLI) | payer OTHER ==
--- NOTE | 2021-10-18 17:13 | XRAY Report ---
PROCEDURE: Chest 2 View X-Ray INDICATIONS: FATIGUE TECHNIQUE: 2 view(s) of the chest. COMPARISON: 08/18/2019.. FINDINGS: Surgical changes and devices: None. Lungs and pleura: No pleural effusions or pneumothorax. Lungs are clear. Mediastinum: Mediastinal contours are normal. Heart size is normal. Bones and chest wall: Chronic left rib fractures stable compared to prior exam. No suspicious bony a bnormalities. Soft tissues appear unremarkable. IMPRESSION: No acute cardiopulmonary disease process. Reviewed by: Sandra Jacques MD, PhD on 10/18/2021 5:11 PM PDT Approved by: Sandra Jacques MD, PhD on 10/18/2021 5:11 PM PDT Station ID: [id number]
== END 2021-10-18 23:59 | disposition home or self-care (01) ==
LOC: DI.S 08:00
PROVIDERS: ATTEND Physician Assistant Medical
DX: R05.9 Cough, unspecified (principal); R53.83 Other fatigue; Z20.822 Contact with and (suspected) exposure to COVID-19

== ENCOUNTER 2021-10-29 08:00 | Outpatient (CLI) | payer OTHER ==
--- NOTE | 2021-10-29 12:05 | XRAY Report ---
PROCEDURE: Chest 2 View X-Ray INDICATIONS: COUGH TECHNIQUE: 2 view(s) of the chest. COMPARISON: None. FINDINGS: Surgical changes and devices: None. Lungs and pleura: No pleural effusions or pneumothorax. Lungs are clear. Mediastinum: Mediastinal contours are normal. Heart size is normal. Bones and chest wall: Chronic left rib fractures. No suspicious bony abnormalities. Soft tissues ap pear unremarkable. IMPRESSION: No acute cardiopulmonary disease process. Reviewed by: Sandra Jacques MD, PhD on 10/29/2021 12:04 PM PDT Approved by: Sandra Jacques MD, PhD on 10/29/2021 12:04 PM PDT Station ID: [id number]
== END 2021-10-29 23:59 | disposition home or self-care (01) ==
LOC: DI.S 08:00
PROVIDERS: ATTEND Physician Assistant
DX: R05.9 Cough, unspecified (principal); R07.81 Pleurodynia

== ENCOUNTER 2023-04-02 08:31 | Outpatient (CLI) | payer BC, MEDICAID ==
[2023-04-02 14:38] LABS: BASOPHILS # (AUTO) 0.1 10^3/uL (0.0-0.1); BASOPHILS % (AUTO) 1.3 %; EOSINOPHILS # (AUTO) 0.4 10^3/uL (0.0-0.7); EOSINOPHILS % (AUTO) 5.6 %; HCT - HEMATOCRIT 43.8 % (42.0-52.0); HGB - HEMOGLOBIN 14.6 g/dL (14.0-18.0); LYMPHOCYTES # (AUTO) 2.3 10^3/uL (1.5-3.5); LYMPHOCYTES % (AUTO) 33.1 %; MEAN CORPUSCULAR HEMOGLOBIN 30.3 pg (27.0-31.0); MEAN CORPUSCULAR HGB CONC 33.3 g/dL (32.0-36.0); MEAN CORPUSCULAR VOLUME 90.9 fL (80.0-94.0); MEAN PLATELET VOLUME 9.8 fL (7.4-11.4); MONOCYTES # (AUTO) 0.7 10^3/uL (0.0-1.0); MONOCYTES % (AUTO) 10.1 %; NEUTROPHILS # (AUTO) 3.5 10^3/uL (1.5-6.6); NEUTROPHILS % (AUTO) 49.6 %; PLT - PLATELET COUNT 267 10^3/uL (130-450); RED BLOOD COUNT 4.82 10^6/uL (4.70-6.10); RED CELL DISTRIBUTION WIDTH 13.1 % (12.0-15.0)
[2023-04-02 15:07] LABS: THYROID STIMULATING HORMONE 1.19 uIU/mL (0.34-5.60)
[2023-04-02 15:45] LABS: ALBUMIN 4.4 g/dL (3.2-5.5); ALBUMIN/GLOBULIN RATIO 1.8 (1.0-2.2); ALKALINE PHOSPHATASE 77 IU/L (42-121); ALT ALANINE AMINOTRANSFERASE 23 IU/L (10-60); AST ASPARTATE AMINOTRANSFERASE 23 IU/L (10-42); BILIRUBIN,TOTAL 0.3 mg/dL (0.2-1.0); BUN - BLOOD UREA NITROGEN 18 mg/dL (6-20); CALCIUM 9.4 mg/dL (8.5-10.3); CARBON DIOXIDE - CO2 26 mmol/L (21-32); CHLORIDE 107 mmol/L (101-111); CHOL/HDL RATIO 5.7 (<5.0); CHOLESTEROL 235 mg/dL; CREATININE 0.8 mg/dL (0.6-1.3); GFR - MDRD 101 (>89); GLUCOSE 124 mg/dL (74-104); HDL CHOLESTEROL 41 mg/dL; LDL CHOLESTEROL,CALCULATED 135 mg/dL; LDL/HDL RATIO 3.3 (<3.6); POTASSIUM 4.1 mmol/L (3.5-4.5); SODIUM 139 mmol/L (135-145); TOTAL PROTEIN 6.8 g/dL (6.4-8.9); TRIGLYCERIDES 293 mg/dL (48-352); VLDL CHOLESTEROL 59 mg/dL
[2023-04-02 20:45] LABS: ESTIMATED AVERAGE GLUCOSE 148 mg/dL (70-100); HEMOGLOBIN A1c% 6.8 % (4.27-6.07)
== END 2023-04-02 08:32 | disposition home or self-care (01) ==
LOC: LAB.S 08:31
PROVIDERS: ATTEND Nurse Practitioner Acute Care
DX: E11.9 Type 2 diabetes mellitus without complications (principal); Z12.5 Encounter for screening for malignant neoplasm of prostate; Z13.228 Encounter for screening for other metabolic disorders; Z13.220 Encounter for screening for lipoid disorders; Z13.1 Encounter for screening for diabetes mellitus; Z13.29 Encounter for screening for other suspected endocrine disorder; Z13.0 Encounter for screening for diseases of the blood and blood-forming organs and certain disorders involving the immune mechanism
CPT/HCPCS: 36415; 80053; 80061; 82043; 82570; 83036; 83721; 84153; 84443; 85025

== ENCOUNTER 2023-04-16 08:23 | Outpatient (CLI) | payer BC, MEDICAID ==
--- NOTE | 2023-04-16 12:45 | CT Report ---
PROCEDURE: Low Dose Lung Cancer Screen INDICATIONS: LUNG CA SCREENING TECHNIQUE: A CT scan of the chest was performed. Intravenous contrast media was not administered. Images were re corded and evaluated at appropriate window settings. Reformats: axial MIP of the chest, coronal and s agittal. For radiation dose reduction, the following was used: automated exposure control, adjustment of mA and/or kV according to patient size. COMPARISON: None. FINDINGS: Image quality: Excellent. Lungs and pleura: No pleural effusions. No pneumothorax. No suspicious pulmonary nodules which requi re follow up. Mild bibasilar scarring Mediastinum: Heart size is normal. No pericardial effusion. No large vessel abnormality. No mediastin al adenopathy by size criteria. Chest wall and lower neck: Thyroid is unremarkable. No axillary or supraclavicular adenopathy by size . Bones: No aggressive osseous abnormality. Upper Abdomen: Unremarkable. IMPRESSION: Mild bibasilar scarring. No pulmonary nodules Lung RAD: 1 - Negative. Recommendation: Continue annual screening Reviewed by: Carlos Santos MD on 04/16/2023 11:43 AM [facility] Approved by: Carlos Santos MD on 04/16/2023 11:43 AM [facility] Station ID: [id number]
== END 2023-04-16 08:24 | disposition home or self-care (01) ==
LOC: DI 08:23
PROVIDERS: ATTEND Nurse Practitioner Acute Care
DX: Z12.2 Encounter for screening for malignant neoplasm of respiratory organs (principal); J98.4 Other disorders of lung

== ENCOUNTER 2023-07-21 09:37 | Outpatient (CLI) | payer BC, MEDICAID ==
[2023-07-21 16:00] LABS: CHOL/HDL RATIO 3.9 (<5.0); CHOLESTEROL 192 mg/dL; HDL CHOLESTEROL 49 mg/dL; LDL CHOLESTEROL,CALCULATED 90 mg/dL; LDL/HDL RATIO 1.8 (<3.6); TRIGLYCERIDES 264 mg/dL (48-352); VLDL CHOLESTEROL 53 mg/dL
== END 2023-07-21 09:38 | disposition home or self-care (01) ==
LOC: LAB.S 09:37
PROVIDERS: ATTEND Nurse Practitioner Acute Care
DX: E78.5 Hyperlipidemia, unspecified (principal)
CPT/HCPCS: 36415; 80061; 83721

== ENCOUNTER 2023-10-27 07:14 | Outpatient (CLI) | payer BC, MEDICAID ==
[2023-10-27 15:09] LABS: BASOPHILS # (AUTO) 0.1 10^3/uL (0.0-0.1); BASOPHILS % (AUTO) 1.4 %; EOSINOPHILS # (AUTO) 0.3 10^3/uL (0.0-0.7); EOSINOPHILS % (AUTO) 4.5 %; HCT - HEMATOCRIT 46.3 % (42.0-52.0); HGB - HEMOGLOBIN 14.7 g/dL (14.0-18.0); LYMPHOCYTES % (AUTO) 28.4 %; MEAN CORPUSCULAR HEMOGLOBIN 29.8 pg (27.0-31.0); MEAN CORPUSCULAR HGB CONC 31.7 g/dL (32.0-36.0); MEAN CORPUSCULAR VOLUME 93.9 fL (80.0-94.0); MEAN PLATELET VOLUME 10.2 fL (7.4-11.4); MONOCYTES # (AUTO) 0.8 10^3/uL (0.0-1.0); MONOCYTES % (AUTO) 10.5 %; NEUTROPHILS # (AUTO) 3.9 10^3/uL (1.5-6.6); NEUTROPHILS % (AUTO) 55.1 %; PLT - PLATELET COUNT 270 10^3/uL (130-450); RED BLOOD COUNT 4.93 10^6/uL (4.70-6.10); RED CELL DISTRIBUTION WIDTH 13.1 % (12.0-15.0); WHITE BLOOD COUNT 7.1 x10^3/uL (4.8-10.8)
[2023-10-27 15:32] LABS: ALBUMIN 4.5 g/dL (3.2-5.5); BILIRUBIN,TOTAL 0.4 mg/dL (0.2-1.0); CALCIUM 9.5 mg/dL (8.5-10.3); CREATININE 0.8 mg/dL (0.6-1.3); POTASSIUM 4.4 mmol/L (3.5-4.5); TOTAL PROTEIN 6.8 g/dL (6.4-8.9)
[2023-10-27 15:59] LABS: CREATININE,URINE 169.7 mg/dL; MICROALBUM/CREATININE RATIO,UR 5.9 ug/mg (<30.0)
[2023-10-27 21:38] LABS: ESTIMATED AVERAGE GLUCOSE 189 mg/dL (70-100); HEMOGLOBIN A1c% 8.2 % (4.27-6.07)
== END 2023-10-27 07:15 | disposition home or self-care (01) ==
LOC: LAB.S 07:14
PROVIDERS: ATTEND Internal Medicine
DX: E11.9 Type 2 diabetes mellitus without complications (principal); N52.9 Male erectile dysfunction, unspecified
CPT/HCPCS: 36415; 80053; 82043; 82570; 83036; 84403; 85025

== ENCOUNTER 2024-01-12 08:55 | Outpatient (CLI) | payer BC ==
[2024-01-12 15:13] LABS: BASOPHILS # (AUTO) 0.1 10^3/uL (0.0-0.1); BASOPHILS % (AUTO) 1.2 %; EOSINOPHILS # (AUTO) 0.4 10^3/uL (0.0-0.7); EOSINOPHILS % (AUTO) 4.3 %; HCT - HEMATOCRIT 43.7 % (42.0-52.0); HGB - HEMOGLOBIN 14.2 g/dL (14.0-18.0); LYMPHOCYTES # (AUTO) 2.6 10^3/uL (1.5-3.5); LYMPHOCYTES % (AUTO) 30.7 %; MEAN CORPUSCULAR HEMOGLOBIN 29.7 pg (27.0-31.0); MEAN CORPUSCULAR HGB CONC 32.5 g/dL (32.0-36.0); MEAN CORPUSCULAR VOLUME 91.4 fL (80.0-94.0); MEAN PLATELET VOLUME 10.4 fL (7.4-11.4); MONOCYTES # (AUTO) 0.8 10^3/uL (0.0-1.0); MONOCYTES % (AUTO) 8.9 %; NEUTROPHILS # (AUTO) 4.6 10^3/uL (1.5-6.6); NEUTROPHILS % (AUTO) 54.3 %; PLT - PLATELET COUNT 235 10^3/uL (130-450); RED BLOOD COUNT 4.78 10^6/uL (4.70-6.10); RED CELL DISTRIBUTION WIDTH 12.3 % (12.0-15.0); WHITE BLOOD COUNT 8.5 x10^3/uL (4.8-10.8)
[2024-01-12 15:44] LABS: ALBUMIN 4.5 g/dL (3.2-5.5); ALBUMIN/GLOBULIN RATIO 1.8 (1.0-2.2); ALKALINE PHOSPHATASE 96 IU/L (42-121); ALT ALANINE AMINOTRANSFERASE 18 IU/L (10-60); AMYLASE 29 U/L (28-100); AST ASPARTATE AMINOTRANSFERASE 19 IU/L (10-42); BILIRUBIN,TOTAL 0.5 mg/dL (0.2-1.0); BUN - BLOOD UREA NITROGEN 19 mg/dL (6-20); CALCIUM 9.6 mg/dL (8.5-10.3); CARBON DIOXIDE - CO2 26 mmol/L (21-32); CHLORIDE 103 mmol/L (101-111); CREATININE 0.8 mg/dL (0.6-1.3); GFR - MDRD 100 (>89); GLUCOSE 203 mg/dL (74-104); LIPASE 86 U/L (11-82); POTASSIUM 4.4 mmol/L (3.5-4.5); SODIUM 136 mmol/L (135-145)
[2024-01-12 15:49] LABS: KETONES, SERUM (ACETEST) NEGATIVE (NEGATIVE)
== END 2024-01-12 08:56 | disposition home or self-care (01) ==
LOC: LAB.S 08:55
PROVIDERS: ATTEND Internal Medicine
DX: E11.9 Type 2 diabetes mellitus without complications (principal); R19.7 Diarrhea, unspecified
CPT/HCPCS: 36415; 80053; 82009; 82150; 83690; 85025